=== PATIENT | female | born 1950 | race Caucasian/White ===

== ENCOUNTER 2020-09-16 10:44 | Outpatient (CLI) | payer MEDICARE, SELFPAY ==
--- NOTE | ~2020-09-16 | CT_ITS ---
EXAMINATION: CT abdomen pelvis wo/w con DATE: 09/16/2020 11:31 INDICATION: Left hydronephrosis TECHNIQUE: Computed tomography (CT) of the abdomen and pelvis was performed without and subsequently with 130 cc Omnipaque 350 intravenous contrast. Automated exposure control and iterative reconstructi on technique were employed. Exam dose: 446.97 mGy-cm total exam DLP. COMPARISON: None. FINDINGS: The lung bases are clear of infiltrate or consolidation. There is mild discoid atelectasis or scarring at the anterolateral aspect of the right lower lobe. Right lower lobe calcified pulmonary granuloma. Normal heart size. No pericardial or pleural effusion. The liver, gallbladder, bile ducts, spleen, pancreas and pancreatic duct are unremarkable, except for probable very small lateral segment left hepatic cyst. No pericholecystic fluid or stranding. No gal lbladder wall thickening. No pancreatic calcification. 4 mm right renal cortical cyst. No other renal mass lesion is evident. There is no urinary tract calc ulus evident. No right hydroureteronephrosis. There is moderately severe left hydronephrosis and prominent left pelviectasis, apparently due to the left ureteropelvic disproportion. There is no loss of renal parenchymal volume of either kidney, no renal scarring. Right ureteral jet. There is atherosclerotic calcification of the abdominal aorta and branches but no aneurysm of the abd ominal aorta. No intraperitoneal or retroperitoneal or pelvic mass lesion or adenopathy or ascites. No bladder wall thickening or intraluminal bladder mass lesion is noted. Uterus and adnexal areas are unremarkable. Normal appendix. There is diverticulosis of the sigmoid colon; no CT evidence of diverticulitis. No b owel obstruction, bowel wall thickening, pneumatosis or intraperitoneal free air is detected. Diffuse osteopenia. No suspicious osteolytic or osteoblastic lesions are noted. IMPRESSION: Moderately severe left hydronephrosis and prominent left pelviectasis, likely secondary to left ureteropelvic disproportion; consider retrograde pyelogram to exclude any ureteral mass lesio n Very small lateral segment left hepatic cyst and 4 mm right renal cortical cyst Diverticulosis of the left colon Reviewed, dictated and finalized at [facility]. Reviewed, dictated and finalized at location [facility]. H FRAMER IMPRESSION: Moderately severe left hydronephrosis and prominent left pelviecta sis, likely secondary to left ureteropelvic disproportion; consider retrograde pyelogram to exclude any ureteral mass lesion Very small lateral segment left hepatic cyst and 4 mm right renal cortical cyst Diverticulosis of the left colon
[2020-09-16 11:09] LABS: Estimated Glomerular Filt Rate > 60
== END 2020-09-16 10:45 | disposition home or self-care (01) ==
LOC: ANHIMG 10:48
PROVIDERS: PCP Nurse Practitioner Adult Health; Visit Provider Urology
DX: N13.30 Unspecified hydronephrosis (principal); K57.30 Diverticulosis of large intestine without perforation or abscess without bleeding; N28.1 Cyst of kidney, acquired
CPT/HCPCS: 74178; Q9967

== ENCOUNTER 2020-09-29 13:19 | Outpatient (CLI) | payer MEDICARE, SELFPAY ==
--- NOTE | ~2020-09-29 | NM_ITS ---
EXAMINATION: SONAM aguilar renal scan DATE: 09/29/2020 15:00 INDICATION: Left hydronephrosis TECHNIQUE: 8.2 mCi Tc-99m MAG3 was administered IV. 40 mg furosemide was administered IV immediately afterward. The patient was scanned in the supine position. A posterior abdominal radionuclide angiog slim was obtained. A subsequent time course of static images of the kidneys, ureters, and bladder was obtained. COMPARISON: None FINDINGS: The posterior abdominal radionuclide angiogram and sequential static images show normal size, positio n, and morphology of the kidneys. Peak renal parenchymal uptake was 7.5 min in left kidney and 1.9 mi n in right kidney (normal peak 3-5 minutes). The relative early renal uptake was 51% on the right an d 49% on the left (<40% is abnormal). There is a dilated left renal pelvis consistent with moderate h ydronephrosis is seen on prior CT. No abnormalities of the ureters or bladder are seen. T1/2 for clearance of activity from the left kidney and proximal collecting system was 18.0 minutes. T1/2 for clearance of activity from the right kidney and proximal collecting system was 8.6 minutes. Notes on interpretation: T1/2 <10 minutes is normal, 10-15 minutes is low grade obstruction of questi onable clinical significance, 15-20 minutes is partial obstruction that is likely clinically signific ant, >20 minutes is high grade obstruction. Note that false positives may be seen with supine positio lainey, dehydration, severely dilated nonobstructed kidney, atonic collecting system, poor renal functi on, and chronic furosemide use. IMPRESSION: 1. Delayed contrast clearance from the left kidney consistent with partial obstruction which could b e clinically significant however renal function remains symmetric. Reviewed, dictated and finalized at location A. B2B SALES EXECUTIVE IMPRESSION: 1. Delayed contrast clearance from the left kidney consistent with partial obs truction which could be clinically significant however renal function remains s ymmetric.
== END 2020-09-29 13:20 | disposition home or self-care (01) ==
PROVIDERS: PCP Nurse Practitioner Adult Health; Visit Provider Urology
DX: N13.30 Unspecified hydronephrosis (principal)
CPT/HCPCS: 78708; A9562; J1940

== ENCOUNTER 2020-11-08 12:28 | Outpatient (CLI) | payer MEDICARE, SELFPAY ==
--- NOTE | 2020-11-08 16:31 | WPDSIXMINUTE ---
Six Minute Walk This is a 6 minutes walk for exertional dyspnea. Findings: The patient's resting room air oxygen saturation measured by pulse oximetry was 92% and her heart rate was 80 bpm. Patient ambulated on room air for 213 meters and oxygen saturation remained 89 to 93%. Heart rate at the end of the study was 87 bpm. There are no prior studies for comparison.
== END 2020-11-08 12:29 | disposition home or self-care (01) ==
PROVIDERS: PCP Nurse Practitioner Adult Health; Visit Provider Nurse Practitioner
DX: J44.9 Chronic obstructive pulmonary disease, unspecified (principal)
CPT/HCPCS: 94618

== ENCOUNTER 2020-11-10 09:51 | Outpatient (CLI) | payer MEDICARE, SELFPAY ==
--- NOTE | 2020-11-10 09:53 | ECG_ITS ---
Measurements Intervals [place] Rate: 78 P: 81 IN: 217 QRS: 71 QRSD: 95 T: 68 QT: 401 QTc: 457 Interpretive Statements SINUS RHYTHM WITH FIRST DEGREE AV BLOCK FREQUENT VENTRICULAR PREMATURE COMPLEXES POSSIBLE LEFT ATRIAL ENLARGEMENT BORDERLINE R WAVE PROGRESSION, ANTERIOR LEADS BASELINE WANDER- V3-V6 ABNORMAL ECG Electronically Signed On 11-10-2020 12:04:57 CUSTOMER CARE VOICE CONSULTANT by Jorden Brandt D.O.
== END 2020-11-10 09:52 | disposition home or self-care (01) ==
LOC: ANHSURGERY 09:53
PROVIDERS: PCP Nurse Practitioner Adult Health; Visit Provider Urology
DX: Z01.818 Encounter for other preprocedural examination (principal); E78.00 Pure hypercholesterolemia, unspecified; N13.30 Unspecified hydronephrosis; R94.31 Abnormal electrocardiogram [ECG] [EKG]
CPT/HCPCS: 87086; 93005

== ENCOUNTER 2020-11-13 01:15 | Outpatient (CLI) | payer MEDICARE, SELFPAY ==
[2020-11-13 18:47] LABS: SARS-CoV-2 RNA PCR Negative
== END 2020-11-13 01:16 | disposition home or self-care (01) ==
LOC: ANHCOVIDDT 01:15
PROVIDERS: PCP Nurse Practitioner Adult Health; Visit Provider Urology
DX: Z01.812 Encounter for preprocedural laboratory examination (principal); Z20.822 Contact with and (suspected) exposure to COVID-19
CPT/HCPCS: C9803; U0003; U0005

== ENCOUNTER 2020-11-16 01:40 | Day surgery (SDC) | payer MEDICARE, SELFPAY ==
[2020-11-08 14:37] VITALS: BMI 20.7
--- NOTE | ~2020-11-16 | XR_ITS ---
EXAMINATION: XR retrograde pyelo w/stent LT EXAM DATE: 11/16/2020 09:04 INDICATION: Left-sided retrograde mammogram for hydronephrosis. TECHNIQUE: Fluoroscopy used during XR retrograde pyelo w/stent LT performed by Dr. Raheem rey MD. The DAP for this procedure was 168 radcm2. FINDINGS: Left ureter was cannulated and injected. There is moderate to severe left hydronephrosis, without evidence of hydroureter. There is diffusely narrow appearing proximal ureter, does raise poss ibility of congenital narrowing causing chronic low-grade flow impairment as underlying etiology for the hydronephrosis. No focal superimposed strictures identified. No filling defects. A left double-J ureteral stent was positioned. Correlate with procedure note. IMPRESSION: Moderate to severe left hydronephrosis with diffusely narrow proximal ureter, could be co ngenital finding and resultant chronic low-grade urine flow impairment. Reviewed, dictated and finalized at location A. O FINISH PHOTOGRAPHER IMPRESSION: Moderate to severe left hydronephrosis with diffusely narrow proxim al ureter, could be congenital finding and resultant chronic low-grade urine fl ow impairment.
[2020-11-16 06:51] VITALS: BP 150/63; PULSE 80; RESP 16; TEMP 36.4; O2SAT 96
[2020-11-16] MEDS: LACTATED RINGERS 1,000 ML 30 ML IV CONT (07:10)
--- NOTE | 2020-11-16 07:30 | WPDHPUPDATE1 ---
History and Physical Update Update Date/Time: 11/16/20 07:30 History and Physical has been reviewed, including an updated exam of the patient. There are NO changes in the patient's condition. Risks, benefits, and alternatives have been discussed and questions answered. Patient agrees to proceed with procedure.
--- NOTE | 2020-11-16 07:53 | WPDANESEPPF ---
Anes - Initial Pre Proc Eval Procedure: Operation Date: 11/16/20 08:30 Proposed Procedures p Cystoscopy, Possible Left Ureteroscopy, Left Retrograde Pyelogram - Raheem Fuentes MD Date/Time: 11/16/20 07:53 Surgeon: Raheem Fuentes MD Pre Op Diagnosis: Left Hydronephrosis Patient Data Age: 70 Gender: F Height: 5 ft Weight: 46.5 kg Last Vital Signs Temp 97.6 F 11/16/20 06:51 Pulse 80 11/16/20 06:51 Resp 16 11/16/20 06:51 BP 150/63 H 11/16/20 06:51 Pulse Ox 96 11/16/20 06:51 Allergies Allergy/AdvReac Type Severity Reaction Status Date / Time No Known Allergies Allergy Verified 11/16/20 06:58 Home Medications Medication Instructions Recorded Confirmed Type albuterol sulfate 2 puff INHALATION BID 11/08/20 11/16/20 History aspirin [Adult Low Dose Aspirin] 81 mg PO DAILY 11/08/20 11/16/20 History budesonide-formoterol [Symbicort] 2 puff BID 11/08/20 11/16/20 History carbamazepine 200 mg PO BID 11/08/20 11/16/20 History escitalopram oxalate 20 mg PO QAM 11/08/20 11/16/20 History ibandronate 150 mg PO MONTHLY 11/08/20 11/16/20 History omeprazole 40 mg PO DAILY 11/08/20 11/16/20 History simvastatin 20 mg PO DAILY 11/08/20 11/16/20 History temazepam 15 mg PO HS 11/08/20 11/16/20 History tiotropium bromide [Spiriva 1 puff INHALATION BID 11/08/20 11/16/20 History Respimat] Patient hx anesthesia problems: none Family hx anesthesia problems: none PMFSH Past Medical History Medical History (Updated 11/16/20 @ 07:52 by Charlie Garcia MD) COPD (chronic obstructive pulmonary disease) GERD (gastroesophageal reflux disease) Hyperlipidemia TIA (transient ischemic attack) Social History Social History Smoking packs per day: 0.5 Smoking cigarettes per day: 10.0 Years smoked: 40 Smoking pack-years: 20.00 Smoking status: Current every day smoker Tobacco type: cigarettes Living arrangements: alone Spiritual care concerns: No Anes - Eval Final PreProcedure Day of Procedure 11/16/20 07:53 Patient weight: normal Heart: regular rate and rhythm Lungs: clear to auscultation Airway: Mallampati scale class II Neurological: alert and oriented Last oral intake: >/= 8 hours ASA classification: III Emergent: no Anesthetic plan: proceed Anesthesia type and monitoring: general LMA and standard monitoring Informed Consent: The patient's anesthetic plan and its attendant risks and benefits were discussed with the patient/family/POA. Questions were solicited and answers provided to the satisfaction of the patient/family/POA.
[2020-11-16] MEDS: ceFAZolin 2 GM/D5W 50 ML 2 GM/50 ML BAG IVPB (08:26)
[2020-11-16] MEDS: LIDOCAINE HCL 2% GEL UROJET 10 ML PKG MUCOUS MEM (08:56)
--- NOTE | 2020-11-16 09:01 | P.OP_ITS ---
Procedure Note - Detailed Date of procedure: 11/16/20 Pre-op diagnosis: Left Hydronephrosis Post-op diagnosis: same (Left UPJ) Procedure performed: Cystoscopy, left retrograde pyelogram, left ureteroscopy, left ureteral stent placement 4.8 Citizen [place] contour Description of procedure: Patient is taken the operative suite and correctly identified. Once anesthesia was obtained she was placed in dorsal lithotomy position and prepped draped usual sterile fashion. Nineteen Citizen [place] scope inserted the bladder. There is no tumors noted. Left ureteral orifice was cannulated with a Wedron in a pyelogram was performed. There was no filling defects in the ureter she did have some narrowing at the UPJ which is consistent with UPJ obstruction. We placed a wire up to that area and placed a flexible ureteral scope in. We were able to get it all the way to the UPJ but not able to manipulate the angle to get into the renal pelvis. We thus just simply placed a wire in and placed a 4.8 [place] contour stent. 2% viscous lidocaine was inserted urethra. The plan is to simply remove the stent in a couple weeks and see how she does clinically. Based on prior renal scan she has not lost any function of that kidney. There was no evidence of tumors at this area. Anesthesia: GLMA Surgeon: Raheem Fuentes MD Drains: Yes Packing: No Pathology: none sent Complications: No immediate complications Condition: stable Disposition: PACU
[2020-11-16 09:05] VITALS: BP 137/79; PULSE 87; RESP 16; TEMP 36.1; O2SAT 100
[2020-11-16 09:20] VITALS: BP 159/79; PULSE 83; RESP 16; O2SAT 100
[2020-11-16 09:30] VITALS: BP 164/83; PULSE 84; RESP 16; O2SAT 95
[2020-11-16 09:35] VITALS: BP 155/77; PULSE 79; RESP 16
[2020-11-16 10:05] VITALS: BP 155/76; PULSE 86; RESP 16
== END 2020-11-16 10:19 | disposition home or self-care (01) ==
PROVIDERS: PCP Nurse Practitioner Adult Health; Visit Provider Urology
PROC: (CPT 52352; principal; 2020-11-16 08:30)
DX: N13.30 Unspecified hydronephrosis (principal); E78.5 Hyperlipidemia, unspecified; J44.9 Chronic obstructive pulmonary disease, unspecified; K21.9 Gastro-esophageal reflux disease without esophagitis; Z86.73 Personal history of transient ischemic attack (TIA), and cerebral infarction without residual deficits; Z79.82 Long term (current) use of aspirin; F17.210 Nicotine dependence, cigarettes, uncomplicated
CPT/HCPCS: 52332; 74420; 87086; 93005; A9270; C1758; C1769; C2617; C9803; J0690; J1100; J2405; J2704; J3010; J7120; Q9966; U0003; U0005

== ENCOUNTER 2020-11-23 13:16 | Outpatient (CLI) | payer MEDICARE, SELFPAY ==
--- NOTE | 2020-11-23 | ECHO_ITS ---
Patient Info Name: Janette Interiano Age: 70 years : 1950 Gender: Female Ht: 60 in Wt: 102 lbs BSA: 1.40 m2 HR: 66 bpm BP: 158 / 82 mmHg Heart Rhythm: Sinus Rhythm Technical Quality: Fair Exam Date: 11/23/2020 1:46 PM Exam Location: [facility] Patient Status: Outpatient Admit Date: 11/23/2020 Staff Ordering Physician: LedaKarie Clinical Microbiologist: Roseann Rosales RDCS Attending Provider: ZacariasKarie Exam Type: CA echo doppler color flow Study Info Indications R06.09 - Other forms of dyspnea Complete two-dimensional, color flow and Doppler transthoracic echocardiogram is performed. Summary 1. Complete two-dimensional, color flow and Doppler transthoracic echocardiogram is performed. 2. Left ventricular chamber dimension is normal. 3. Left ventricular systolic function is normal, estimated at 60-65%. 4. Left ventricular false tendon is incidentally noted. 5. No significant valvular abnormality reason for dyspnea. Left Ventricle Left ventricular chamber dimension is normal. Left ventricular systolic function is normal, estimated at 60-65%. The left ventricular diastolic function is grade I diastolic dysfunction. Left ventricular false tendon is incidentally noted. Right Ventricle Right ventricular chamber dimension is normal. Left Atria Left atrial chamber dimension is normal. Right Atria Right atrial chamber dimension is normal. Aortic Valve The aortic valve is trileaflet. There is no aortic valve stenosis. Pulmonic Valve The pulmonic valve is not well visualized. Mitral Valve The mitral valve has normal leaflets. There is no mitral valve regurgitation. Tricuspid Valve The tricuspid valve leaflets are normal. Pericardium/Pleural The pericardium appears normal. Aorta The aortic root size at the sinus of Valsalva is normal. Left Ventricular Outflow Tract Name Value Normal LVOT 2D LVOT Diameter 2.0 cm LVOT Doppler LVOT Peak Gradient 4 mmHg LVOT Mean Gradient 2 mmHg LVOT VTI 23 cm LVOT VTI/AV VTI Ratio 0.9 LVOT Stroke Volume 70 ml LVOT CO 4.5 l/min LVOT CI 3.2 l/min/m2 Pulmonic Valve Name Value Normal RVOT Doppler RVOT Peak Gradient 1 mmHg PV Doppler PV Peak Gradient 2 mmHg Mitral Valve Name Value Normal MV Doppler
== END 2020-11-23 13:17 | disposition home or self-care (01) ==
PROVIDERS: PCP Nurse Practitioner Adult Health; Visit Provider Nurse Practitioner
DX: J44.9 Chronic obstructive pulmonary disease, unspecified (principal); R06.09 Other forms of dyspnea
CPT/HCPCS: 93306

== ENCOUNTER 2021-09-12 07:57 | Outpatient (CLI) | payer MEDICARE, SELFPAY ==
--- NOTE | 2021-09-12 14:10 | WPDSIXMINUTE ---
Six Minute Walk Procedure Procedure Performed Pulmonary Stress Test (6 min walk) Six Minute Walk This is a 6 minute walk test. The test was performed and interpreted in accordance with the 2014 ERS/ATS task force guidelines. Findings: The patient's resting room air oxygen saturation measured by pulse oximetry was 95% and her heart rate was 75 bpm. Patient ambulated for 366 meters and oxygen saturation remained 90 to 95%. Heart rate at the end of the study was 97 bpm. The patient did not qualify for supplemental oxygen at rest or with ambulation. Compared to previous 6 minutes walk performed on 11/08/2020 the distance walked has increased from 213 m to 366 m.
== END 2021-09-12 07:58 | disposition home or self-care (01) ==
LOC: ANHPFT 08:04
PROVIDERS: PCP Nurse Practitioner Adult Health; Visit Provider Nurse Practitioner
DX: J44.9 Chronic obstructive pulmonary disease, unspecified (principal)
CPT/HCPCS: 94618

== ENCOUNTER 2021-10-12 01:25 | Day surgery (SDC) | payer MEDICARE, SELFPAY ==
[2021-10-06 10:01] VITALS: BMI 20.6
--- NOTE | 2021-10-11 09:10 | PM.HPGS ---
History of Present Illness History of Present Illness Consent: Risks, benefits, and alternatives have been discussed and questions answered. Patient agrees to proceed with procedure. Chief complaint: dysphagia Narrative: Janette Interiano is a 71 year old female Who has in the past had dysphagia requiring dilatation. When I saw her a few years ago no stricture was seen. I did obtain biopsies that were unremarkable with no Abbasi's mucosa Review of Systems Review of Systems: All systems reviewed & are unremarkable except as noted in HPI and below PMFSH Past Medical History Medical History COPD (chronic obstructive pulmonary disease) GERD (gastroesophageal reflux disease) Hyperlipidemia TIA (transient ischemic attack) Social History Social History Smoking packs per day: 0.5 Smoking cigarettes per day: 10.0 Years smoked: 40 Smoking pack-years: 20.00 Smoking status: Current every day smoker Tobacco type: cigarettes Alcohol intake: current Alcohol use details: few beers per month Substance use: never Substance use type: does not use Living arrangements: alone Spiritual care concerns: No Meds Home Medications and Allergies Home Medications Medication Instructions Recorded Confirmed Type Spiriva Respimat 1 puff INHALATION BID 11/08/20 10/12/21 History albuterol sulfate 2 puff INHALATION BID 11/08/20 10/12/21 History aspirin 81 mg PO DAILY 11/08/20 10/12/21 History budesonide-formoterol [Symbicort] 2 puff BID 11/08/20 10/12/21 History carbamazepine 200 mg PO BID 11/08/20 10/12/21 History escitalopram oxalate 20 mg PO QAM 11/08/20 10/12/21 History ibandronate 150 mg PO MONTHLY 11/08/20 10/12/21 History omeprazole 40 mg PO DAILY 11/08/20 10/12/21 History simvastatin 20 mg PO DAILY 11/08/20 10/12/21 History temazepam 15 mg PO HS 11/08/20 10/12/21 History Allergies Allergy/AdvReac Type Severity Reaction Status Date / Time No Known Allergies Allergy Verified 10/12/21 07:13 Exam Const: General: alert Orientation/consciousness: patient oriented x3 Resp: Auscultation: clear to auscultation bilaterally Cardio: Rhythm: regular rhythm GI: GI Palp: Yes Soft to palpation and No Tenderness to palpation present (GI) Neuro: General: patient oriented x3 Assessment and Plan Assessment and plan (1) Dysphagia: Code(s): R13.10 - Dysphagia, unspecified Status: Acute Assessment and Plan: EGD with possible biopsy or dilatation or cautery.
[2021-10-12 07:14] VITALS: BP 160/109; PULSE 93; RESP 16; TEMP 36.9; O2SAT 93
[2021-10-12] MEDS: LACTATED RINGERS 1,000 ML 150 ML IV CONT (07:16)
--- NOTE | 2021-10-12 07:40 | WPDANESEPPF ---
Anes - Initial Pre Proc Eval Procedure: Operation Date: 10/12/21 08:30 Proposed Procedures p Esophagogastroduodenoscopy - Pro Hilario MD Date/Time: 10/12/21 07:40 Surgeon: Pro Hilario MD Pre Op Diagnosis: dysphagia Patient Data Age: 71 Gender: F Height: 1.52 m Weight: 47.7 kg Last Vital Signs Temp 36.9 C 10/12/21 07:14 Pulse 93 10/12/21 07:14 Resp 16 10/12/21 07:14 BP 160/109 H 10/12/21 07:14 Pulse Ox 93 10/12/21 07:14 Allergies Allergy/AdvReac Type Severity Reaction Status Date / Time No Known Allergies Allergy Verified 10/12/21 07:13 Home Medications Medication Instructions Recorded Confirmed Type Spiriva Respimat 1 puff INHALATION BID 11/08/20 10/12/21 History albuterol sulfate 2 puff INHALATION BID 11/08/20 10/12/21 History aspirin 81 mg PO DAILY 11/08/20 10/12/21 History budesonide-formoterol [Symbicort] 2 puff BID 11/08/20 10/12/21 History carbamazepine 200 mg PO BID 11/08/20 10/12/21 History escitalopram oxalate 20 mg PO QAM 11/08/20 10/12/21 History ibandronate 150 mg PO MONTHLY 11/08/20 10/12/21 History omeprazole 40 mg PO DAILY 11/08/20 10/12/21 History simvastatin 20 mg PO DAILY 11/08/20 10/12/21 History temazepam 15 mg PO HS 11/08/20 10/12/21 History Patient hx anesthesia problems: none Family hx anesthesia problems: none Results Review: All pre-operative results and documents have been reviewed as part of the pre-operative evaluation. [facility] Past Medical History Medical History (Updated 10/12/21 @ 07:40 by Larry Dean MD) Chronic respiratory failure with hypoxia, on home oxygen therapy COPD (chronic obstructive pulmonary disease) GERD (gastroesophageal reflux disease) Hyperlipidemia TIA (transient ischemic attack) Social History Social History Smoking packs per day: 0.5 Smoking cigarettes per day: 10.0 Years smoked: 40 Smoking pack-years: 20.00 Smoking status: Current every day smoker Tobacco type: cigarettes Alcohol intake: current Alcohol use details: few beers per month Substance use: never Substance use type: does not use Living arrangements: alone Spiritual care concerns: No Anes - Eval Final PreProcedure Day of Procedure 10/12/21 07:40 Patient weight: thin Heart: regular rate and rhythm Lungs: clear to auscultation Airway: Mallampati scale class II and other (dentures) Neurological: alert and oriented Last oral intake: >/= 8 hours ASA classification: IV Emergent: no Anesthetic plan: proceed Anesthesia type and monitoring: general GIVS and standard monitoring Results Review: All pre-operative results and documents have been reviewed as part of the pre-operative evaluation. Informed Consent: The patient's anesthetic plan and its attendant risks and benefits were discussed with the patient/family/POA. Questions were solicited and answers provided to the satisfaction of the patient/family/POA.
[2021-10-12 08:39] VITALS: BP 119/67; PULSE 70; RESP 18; O2SAT 100
[2021-10-12 08:49] VITALS: BP 127/75; PULSE 74; RESP 20; O2SAT 100
[2021-10-12 08:59] VITALS: BP 148/79; PULSE 68; RESP 20; O2SAT 100
[2021-10-12] MEDS: BENZOCAINE (*SP) 60 ML SPRAY CAN (HURRICAINE) 1 SPRAY MUCOUS MEM (09:08)
== END 2021-10-12 09:16 | disposition home or self-care (01) ==
PROVIDERS: PCP Nurse Practitioner Adult Health; Visit Provider Internal Medicine Gastroenterology
PROC: 0DJ08ZZ Inspection of Upper Intestinal Tract, Via Natural or Artificial Opening Endoscopic (ICD-10-PCS; CPT 43235; principal; 2021-10-12 08:30)
DX: R13.10 Dysphagia, unspecified (principal); J44.9 Chronic obstructive pulmonary disease, unspecified; K21.9 Gastro-esophageal reflux disease without esophagitis; E78.5 Hyperlipidemia, unspecified; Z86.73 Personal history of transient ischemic attack (TIA), and cerebral infarction without residual deficits; F17.210 Nicotine dependence, cigarettes, uncomplicated
CPT/HCPCS: 43239; 88305; J2704; J7120

== ENCOUNTER 2021-11-02 07:45 | Outpatient (CLI) | payer MEDICARE, SELFPAY ==
--- NOTE | ~2021-11-02 | XR_ITS ---
XR barium swallow DATE: 11/02/2021 08:36 INDICATION: Dysphagia. Gastroesophageal reflux. TECHNIQUE: Fluoroscopy, rapid sequence spot radiograph and overhead radiographs during oral ingestion of barium DAP: 2.3 0.7 minutes fluoroscopy time. 64 images. COMPARISON: None FINDINGS: There is normal deglutition and esophageal peristalsis. No stricture, mucosal fold thickeni ng, erosion, ulceration, intraluminal mass lesion or diverticulum of the esophagus is detected. IMPRESSION: Normal examination Reviewed, dictated and finalized at [facility]. Reviewed, dictated and finalized at location A. TALIZER OPERATOR IMPRESSION: Normal examination
== END 2021-11-02 07:46 | disposition home or self-care (01) ==
PROVIDERS: PCP Nurse Practitioner Adult Health; Visit Provider Internal Medicine Gastroenterology
DX: R13.10 Dysphagia, unspecified (principal)
CPT/HCPCS: 74220

== ENCOUNTER 2021-12-04 06:07 | Observation (INO) | payer MEDICARE, SELFPAY ==
[2021-12-04] VITALS (22 sets, daily range): BP systolic 132–176; BP diastolic 72–86; PULSE 67–82; RESP 16–25; TEMP 36.1–37; O2SAT 90–98; BMI 20.3
--- NOTE | ~2021-12-04 | XR_ITS ---
EXAMINATION: XR chest 2V 12/04/2021 08:25 INDICATION: COPD. Dyspnea. PROCEDURE: 2 view chest COMPARISON: Comparison to multiple prior studies sequentially, with oldest reviewed study dated 01/11. FINDINGS: There is a new irregular density in the left upper lobe which may represent scarring or seq uela of previous infection/inflammatory process, although malignancy is not excluded. The lungs are h yperinflated which is consistent with, but not diagnostic of chronic obstructive pulmonary disease. T he cardiomediastinal silhouette is within normal limits. There are no pleural effusions. There is n o pneumothorax suspected. IMPRESSION: 1: New irregular density left upper lobe which may represent sequela of previous infectious/inflamma tory process versus malignancy. This was identified on CTA dated 12/04/2021. Consider correlation wit h pet/CT scan or percutaneous biopsy. Reviewed, dictated and finalized at location A. WORKER BULBS IMPRESSION: 1: New irregular density left upper lobe which may represent sequela of previo us infectious/inflammatory process versus malignancy. This was identified on CT A dated 12/04/2021. Consider correlation with pet/CT scan or percutaneous biops y.
--- NOTE | ~2021-12-04 | MR_ITS ---
EXAMINATION: MR brain/brain stem wo/w con EXAM DATE: 12/04/2021 12:34 INDICATION: right sided weakness and numbness . TECHNIQUE: Magnetic resonance imaging (MRI) of the brain/brain stem obtained without contrast. Sagit christiana T1, axial diffusion, gradient echo (T2*), T1, T2, FLAIR sequences obtained. Patient was then inj ected with 9 cc intravenous Multihance contrast. Axial and coronal postcontrast T1 weighted sequences obtained. There is no prior study for comparison. FINDINGS: There is punctate acute infarction the left thalamus. Punctate old left basal ganglia lacun ar infarction. Mild microangiopathy. There is no acute hemorrhage seen on the T2*, a hemosiderin sens itive sequence. No intraparenchymal brain mass. The ventricles are normal in size. There are no ext ra-axial collections. Flow voids are seen in the cerebral arteries on the T2-weighted sequences cons istent with their expected patency. Patient has had bilateral ocular lens surgery. Soft tissue is u nremarkable. There are no areas of abnormal enhancement on the postcontrast images. IMPRESSION: 1. Acute punctate left thalamic lacunar infarction. Reviewed, dictated and finalized at location G. LY PERSON
--- NOTE | ~2021-12-04 | CT_ITS ---
EXAMINATION: CT BRAIN W/O DATE: 12/04/2021 06:38 INDICATION: Right-sided weakness TECHNIQUE: Computed tomography (CT) of the head was performed without intravenous contrast. The dose- length product was 605.33 mGy-cm. Automated exposure control and iterative reconstruction technique w ere employed. COMPARISON: No prior studies for comparison. FINDINGS: Normal brain parenchymal volume for age. Normal medel-white differentiation. There are chron ic left lacunar infarctions. No acute intracranial hemorrhage, infarction, mass or mass effect. No ventriculomegaly or midline shift. Midline sagittal images demonstrate a normal corpus callosum, c raniovertebral junction and sella turcica. Basilar cisterns are patent. Paranasal sinuses and mastoids are pneumatized. No depressed skull fractures. IMPRESSION: 1. No acute intracranial abnormality. 2: Chronic left lacunar infarctions. Reviewed, dictated and finalized at location A. TS BOOK SERVER
--- NOTE | ~2021-12-04 | CT_ITS ---
EXAMINATION: CTA brain carotid DATE: 12/04/2021 07:33 CIGARETTE MAKING MACHINE CATCHER INDICATION: Right-sided weakness. TECHNIQUE: Computed tomographic angiography (CTA) of the head was performed with 100 mL Omnipaque-350 intravenous contrast. CTA of the neck was performed with intravenous contrast. The dose-length produ ct was 927.05 mGy-cm. Maximum intensity projection and volume rendered 3D-reconstructions were create d by the technologist on a separate workstation. COMPARISON: CT brain dated 12/04/2021. FINDINGS: HEAD CTA: There is normal contrast opacification of the intracranial arteries without evidence for si gnificant stenosis, occlusion or aneurysm. NECK CTA: There is minimal atherosclerosis of the right carotid bulb. No evidence for significant kiet nosis, occlusion, dissection or aneurysm. Thyroid gland is unremarkable. Vertebral arteries within no rmal limits. No evidence for basilar artery aneurysm. Emphysematous changes noted in the lung apices. There is a spiculated 1.9 cm mass in the left upper lobe. There is adjacent pleural thickening. Ther e is debris in the trachea, likely mucus. There is less than 10%% stenosis of the proximal right internal carotid artery relative to normal dis christiana artery lumen diameter (NASCET criteria). There is 0% stenosis of the proximal left internal carot id artery relative to normal distal artery lumen diameter. IMPRESSION: 1.: No significant vascular abnormality of the neck or intracranial arteries. 2: Irregular shaped 1.9 cm mass in the left upper lobe with adjacent pleural thickening. Differential diagnosis includes sequela of previous infectious/inflammatory process and bronchogenic carcinoma. 3: Emphysema. Reviewed, dictated and finalized at location A. RETTE MAKING MACHINE CATCHER IMPRESSION: 1.: No significant vascular abnormality of the neck or intracranial arteries. 2: Irregular shaped 1.9 cm mass in the left upper lobe with adjacent pleural th ickening. Differential diagnosis includes sequela of previous infectious/inflam matory process and bronchogenic carcinoma. 3: Emphysema.
--- NOTE | 2021-12-04 06:17 | ECG_ITS ---
Measurements Intervals [place] Rate: 67 P: 74 TN: 230 QRS: 84 QRSD: 89 T: 85 QT: 412 QTc: 437 Interpretive Statements SINUS RHYTHM WITH FIRST DEGREE AV BLOCK BASELINE ARTIFACT- I, II, III, AVR, AVL, AVF, V1-V6 ABNORMAL ECG Electronically Signed On 12-04-2021 7:39:53 MANAGER STAR by Jorden Brandt D.O.
[2021-12-04 06:25] LABS: Glucose Point of Care 98 mg/dl (65-105)
[2021-12-04 06:32] LABS: Basophils Absolute Auto 0.1 K/mm3 (0.0-0.1); Basophils Percent Auto 1.7 % (0.2-1.2); Eosinophils Absolute Auto 0.6 K/mm3 (0-0.3); Hematocrit 42.9 % (37.0-47.0); Hemoglobin 14.5 g/dL (12.0-15.0); Immature Granulocyte Absolute 0.02 K/mm3 (0.00-0.031); Immature Granulocyte Percent A 0.3 % (0-0.5); Lymphocytes Absolute Auto 2.71 K/mm3 (0.9-3.2); Lymphocytes Percent Auto 34.8 % (18.3-44.2); Mean Corpuscular HGB Conc 33.8 g/dl (32-36); Mean Corpuscular Hemoglobin 32.2 pg (26-34); Mean Corpuscular Volume 95.3 fl (80-100); Mean Platelet Volume 10.4 fl (7.4-10.4); Monocytes Absolute Auto 1.1 K/mm3 (0.1-0.6); Monocytes Percent Auto 13.5 % (2.6-8.5); Neutrophils Absolute Auto 3.3 K/mm3 (1.3-6.7); Neutrophils Percent Auto 41.7 % (45.5-73.1); Platelet Count Result 296 k/mm3 (150-375); Red Cell Distribution Width 13.4 % (11.5-14.5); White Blood Count 7.8 K/mm3 (4.5-10.0)
[2021-12-04 06:45] LABS: INR 0.9; Prothrombin Time 12.4 Seconds (11.1-14.7)
[2021-12-04 06:46] LABS: Partial Thromboplastin Time 27.7 SECONDS (22.3-36.8)
[2021-12-04 06:59] LABS: Add Urine Microscopic? NO; Appearance Urine Clear (Clear); Bilirubin Urine Negative (Negative); Blood Urine Negative (Negative); Color Urine Yellow (Yellow); Glucose Urine UA Negative (Negative); Ketones Urine Negative (Negative); Leukocyte Esterase Ur Negative LEU/UL (Negative); Nitrate Urine Negative (Negative); Protein Urine Negative (Negative); Urobilinogen Urine Negative mg/dL (<2.0)
[2021-12-04 07:02] LABS: Alanine Aminotransferase 20 U/L (4-35); Albumin Level 4.2 g/dL (3.5-5.1); Alkaline Phosphatase 99 U/L (38-126); Anion Gap 3 mmol/L (8-16); Aspartate Amino Transferase 26 U/L (14-36); Bilirubin,Total 0.4 mg/dL (0.2-1.3); Blood Urea Nitrogen 7 mg/dL (7-17); Calcium 9.3 mg/dL (8.4-10.2); Carbon Dioxide 32 mmol/L (22-30); Chloride 105 mmol/L (98-107); Estimated Glomerular Filt Rate > 60; Glucose 95 mg/dL (65-110); Sodium 140 mmol/L (137-145)
--- NOTE | 2021-12-04 07:57 | ED.GENADULT ---
HPI - General Adult General Chief complaint: Weakness Stated complaint: right sided heaviness Time Seen by Provider: 12/04/21 07:03 Source: patient and RN notes reviewed History of Present Illness HPI narrative: Patient is a 71 y/o female complaining of mild right sided weakness, numbness and tingling when she woke up around 5:10AM this morning. She is able to walk. She states that she felt fine when she went to sleep around 9:00 PM last night. Related Data Home Medications Medication Instructions Recorded Confirmed Spiriva Respimat 1 puff INHALATION BID 11/08/20 10/12/21 albuterol sulfate 2 puff INHALATION BID 11/08/20 10/12/21 aspirin 81 mg PO DAILY 11/08/20 10/12/21 budesonide-formoterol [Symbicort] 2 puff BID 11/08/20 10/12/21 carbamazepine 200 mg PO BID 11/08/20 10/12/21 escitalopram oxalate 20 mg PO QAM 11/08/20 10/12/21 ibandronate 150 mg PO MONTHLY 11/08/20 10/12/21 omeprazole 40 mg PO DAILY 11/08/20 10/12/21 simvastatin 20 mg PO DAILY 11/08/20 10/12/21 temazepam 15 mg PO HS 11/08/20 10/12/21 Allergies Allergy/AdvReac Type Severity Reaction Status Date / Time No Known Allergies Allergy Verified 12/04/21 09:02 Review of Systems Constitutional: Constitutional: Denies chills, Denies fever(s), Denies headache(s) and Denies weakness Eyes: Eyes: Denies blurry vision ENT: Denies headache(s) and Denies neck pain Cardiovascular: Cardiovascular: Denies chest pain and Denies dyspnea Respiratory: Respiratory: Denies cough and Denies dyspnea Gastrointestinal: Gastrointestinal: Denies abdominal pain, Denies diarrhea, Denies nausea and Denies vomiting Genitourinary: Genitourinary: Denies hematuria and Denies dysuria Musculoskeletal: Musculoskeletal: Denies back pain and Denies neck pain Neurologic: Denies headache(s), Reports numbness, Reports tingling, Reports paresthesias and Reports weakness PMFSH Past Medical History Medical History Chronic respiratory failure with hypoxia, on home oxygen therapy COPD (chronic obstructive pulmonary disease) GERD (gastroesophageal reflux disease) Hyperlipidemia TIA (transient ischemic attack) Social History Social History Smoking packs per day: 0.5 Smoking cigarettes per day: 10.0 Years smoked: 40 Smoking pack-years: 20.00 Smoking status: Current every day smoker Tobacco type: cigarettes Alcohol intake: current Alcohol use details: few beers per month Substance use: never Substance use type: does not use Spiritual care concerns: No Exam Const: General: no acute distress and well developed Orientation/consciousness: oriented to person, oriented to place, oriented to time and patient oriented x3 HENMT: Head: normocephalic Ears: external ears normal General nose exam: Normal external nose present Eyes: General: appearance normal, both eyes and all related structures Conjunctivae: conjunctivae normal Neck: Neck: normal visual inspection and full ROM Chest: Chest palpation & inspection: normal inspection of the chest and no tenderness Resp: Effort & Inspection: normal respiratory effort Auscultation: clear to auscultation bilaterally Cardio: Rate: regular rate Rhythm: regular rhythm GI: GI Palp: No abdominal tenderness and Yes Soft to palpation Skin: General skin exam: normal color and turgor normal Neuro: General: oriented to person, oriented to place, oriented to time and patient oriented x3 Cognition (Neuro): normal cognition Extrem: General: normal to inspection, full ROM and no pedal edema Psych: Appearance: grossly normal Mental Status: mental status grossly normal Affect: normal affect Course Consultations Consultation #1: Discussed with Dr. Jones, who agrees to admit. Date: 12/04/21 Time: 08:29 Vital Signs Vital signs: Vital Signs Pulse Rate 67 12/04/21 06:09 Respiratory Rate 18 12/04/21 06:09 Blood Pr
--- NOTE | 2021-12-04 08:22 | PC.NURSE ---
pt to Xray at this time.
--- NOTE | 2021-12-04 09:41 | ADMGEN ---
This patient, Janette Interiano, was admitted to Medical Room 249-01. Patient/family oriented to hospital policies and general routines including ID bracelet, bed and alarms, visiting hours, pain management, procedures, bathroom and other care routines, personal items, smoking policy, room service/diet, and visiting hours. Information on how to activate the Rapid Response Team has been discussed. Patient/Family are encouraged to report perceived risks to care and to ask questions if they do not understand what they are told or what they should do.
[2021-12-04] MEDS: ALBUTEROL SULFATE NEB 2.5 MG/3 ML INH 1.25 MG INHALATION ×2 (11:57→20:10)
--- NOTE | 2021-12-04 12:10 | PM.IMHP ---
H&P: HPI History of Present Illness Date/Time: 12/04/21 12:10 Chief Complaint: Right-sided weakness Narrative: 71 years old female admitted from home to the emergency room with a complaint that patient went to bed at 9:00 p.m. last night. Rabia she went to sleep she was fine but she woke this morning at 5:30 a.m. in the morning with complaint of having right-sided tingling and numbness in both upper and lower extremity. She also experienced a brief episode of weakness of the right side of the body. No loss of consciousness. No loss of bowel or bladder control. No swallowing problem. At present time patient is feeling better. However she still have tingling and numbness in the right upper and lower extremity. She is able to walk. She denies any shortness of breath or chest pain. Review of Systems Review of Systems: All systems reviewed & are unremarkable except as noted in HPI and below (the history and physical examination.) [facility] [place] Past Medical History Medical History (Updated 12/04/21 @ 12:13 by Clifford Jones MD) Chronic respiratory failure with hypoxia, on home oxygen therapy COPD (chronic obstructive pulmonary disease) GERD (gastroesophageal reflux disease) Hyperlipidemia TIA (transient ischemic attack) Social History Social History Smoking packs per day: 0.5 Smoking cigarettes per day: 10.0 Years smoked: 40 Smoking pack-years: 20.00 Smoking status: Current every day smoker Tobacco type: cigarettes Alcohol intake: never Alcohol use details: few beers per month Substance use: never Substance use type: does not use Gender identity (if verbalized by the patient): Female Sexual Orientation (if Verbalized by the Patient): Straight or Heterosexual Spiritual care concerns: No Meds Home Medications and Allergies Home Medications Medication Instructions Recorded Confirmed Type Spiriva Respimat 1 puff INHALATION BID 11/08/20 12/04/21 History albuterol sulfate 2 puff INHALATION QID PRN 11/08/20 12/04/21 History aspirin 81 mg PO DAILY 11/08/20 12/04/21 History budesonide-formoterol [Symbicort] 2 puff BID 11/08/20 12/04/21 History carbamazepine 200 mg PO BID 11/08/20 12/04/21 History escitalopram oxalate 20 mg PO QAM 11/08/20 12/04/21 History ibandronate 150 mg PO MONTHLY 11/08/20 12/04/21 History omeprazole 40 mg PO DAILY 11/08/20 12/04/21 History simvastatin 20 mg PO DAILY 11/08/20 12/04/21 History temazepam 15 mg PO HS 11/08/20 12/04/21 History albuterol sulfate 1.25 mg CONTINUOUS NEBULIZATION BID 12/04/21 12/04/21 History Allergies Allergy/AdvReac Type Severity Reaction Status Date / Time No Known Allergies Allergy Verified 12/04/21 09:02 Vital Signs Vital Signs - 24 hr 12/04/21 06:09 12/04/21 06:15 12/04/21 06:51 Temperature 37.0 C Pulse Rate 67 69 68 Respiratory Rate 18 16 Blood Pressure 150/73 H 162/80 H Pulse Oximetry 93 94 12/04/21 07:31 12/04/21 07:32 12/04/21 07:45 Temperature Pulse Rate 77 78 68 Respiratory Rate 18 20 19 Blood Pressure 169/86 H 169/86 H Pulse Oximetry 94 93 94 12/04/21 08:00 12/04/21 08:01 12/04/21 08:20 Temperature Pulse Rate 67 68 Respiratory Rate 20 21 H Blood Pressure 170/78 H Pulse Oximetry 93 92 91 12/04/21 08:29 12/04/21 08:30 12/04/21 08:31 Temperature Pulse Rate 71 69 74 Respiratory Rate 21 H 25 H 22 H Blood Pressure 155/83 H 150/78 H Pulse Oximetry 96 96 95 12/04/21 08:41 12/04/21 09:30 Temperature Pulse Rate 72 74 Respiratory Rate 19 16 Blood Pressure 155/83 H 158/74 H Pulse Oximetry 96 95 Exam Narrative: Constitutional: Constitutional: Denies chills, Denies fever(s), Denies headache(s) and Denies weakness Eyes: Eyes: Denies blurry vision ENT: Denies headache(s) and Denies neck pain Cardiovascular: Cardiovascular: Denies chest pain and Denies dyspnea Respiratory: Respiratory: Denies cough and Denies dyspnea Gastroin
[2021-12-04] MEDS: ASPIRIN 81 MG ENTERIC TABLET PO (13:02)
[2021-12-04] MEDS: ESCITALOPRAM OXALATE 10 MG TABLET 20 MG PO (13:42)
[2021-12-04] MEDS: PANTOPRAZOLE 40 MG TABLET PO (13:42)
--- NOTE | 2021-12-04 15:17 | PC.NURSE ---
Put a call out to Dr. Bawja regarding mri results.
[2021-12-04] MEDS: CLOPIDOGREL BISULFATE 75 MG TABLET PO (16:40)
[2021-12-04] MEDS: CARBAMAZEPINE XR 100 MG TAB.SR.12H 200 MG PO (17:22)
[2021-12-04] MEDS: FLUTICASONE/SALMETEROL 115-21 MCG INHALER 1 PUFF 2 PUFF INHALATION (20:10)
[2021-12-04] MEDS: TEMAZEPAM (*CRX) 15 MG CAPSULE PO (20:38)
[2021-12-04] MEDS: HEPARIN SODIUM 5,000 UNITS/ML VIAL 5000 UNITS SUB-Q (20:38)
[2021-12-05] VITALS (14 sets, daily range): BP systolic 134–152; BP diastolic 60–80; PULSE 74–85; RESP 16–20; TEMP 36.6–37; O2SAT 92–94
--- NOTE | 2021-12-05 06:00 | ECG_ITS ---
Measurements Intervals Hawks Rate: 77 P: 87 AR: 218 QRS: 78 QRSD: 88 T: 80 QT: 406 QTc: 460 Interpretive Statements SINUS RHYTHM WITH FIRST DEGREE AV BLOCK MINIMAL Q WAVES- INFERIOR LEADS ABNORMAL ECG Electronically Signed On 12-05-2021 13:00:49 PUBLISHING AGENT by Jorden Brandt D.O.
--- NOTE | 2021-12-05 06:00 | ECHO_ITS ---
Patient Info Name: Janette Interiano Age: 71 years : 1950 Gender: Female Ht: 60 in Wt: 104 lbs BSA: 1.41 m2 HR: 75 bpm BP: 151 / 74 mmHg Heart Rhythm: Sinus Rhythm Exam Date: 12/05/2021 11:38 AM Exam Location: [facility] Patient Status: Outpatient Admit Date: 12/04/2021 Staff Ordering Physician: Elisa Navarro MD Administrative Library Assistant: Sanford Dyson RDCS, RT Attending Provider: Clifford Jones MD Referring Physician: Ramon CROSS; Exam Type: CA echo doppler color flow Study Info Indications G45.8 - Other transient cerebral ischemic attacks and related syndromes Complete two-dimensional, color flow and Doppler transthoracic echocardiogram is performed. Strain analysis performed. Summary 1. Complete two-dimensional, color flow and Doppler transthoracic echocardiogram is performed. 2. Normal left and right ventricular systolic function. 3. No significant valvular abnormality. 4. Normal sinus rhythm. 5. No likely cardioembolic source identified. Left Ventricular Outflow Tract Name Value Normal LVOT 2D LVOT Diameter 2.0 cm LVOT Doppler LVOT Peak Gradient 3 mmHg LVOT Mean Gradient 2 mmHg LVOT VTI 18 cm LVOT VTI/AV VTI Ratio 0.7 LVOT Stroke Volume 57 ml LVOT CO 5.0 l/min LVOT CI 3.5 l/min/m2 Mitral Valve Name Value Normal MV Doppler MV Decel [place] 225 cm/s2 MV PHT 83 ms MV Area (PHT) 2.7 cm2 4.0-5.0 MV Diastolic Function MV E Peak Velocity 64 cm/s MV A Peak Velocity 101 cm/s MV E/A 0.6 MV Decel Time 286 ms MV Annular TDI MV E/e' (Septal) 10.9 <=8.0 MV E/e' (Lateral) 7.2 <=8.0 MV E/e' (Average) 9.1 Tricuspid Valve Name Value Normal TV Diastolic Function RV MPI 0.22 <=0.43 Aortic Valve Name Value Normal AV Doppler
[2021-12-05 06:01] LABS: Troponin I < 0.012 ng/mL (0.000-0.034)
[2021-12-05] MEDS: FLUTICASONE/SALMETEROL 115-21 MCG INHALER 1 PUFF 2 PUFF INHALATION ×2 (07:52→20:43)
[2021-12-05] MEDS: UMECLIDINIUM BROMIDE 62.5 MCG ELLIPTA 1 PUFF INHALATION (07:52)
[2021-12-05] MEDS: ALBUTEROL SULFATE NEB 2.5 MG/3 ML INH 1.25 MG INHALATION ×2 (07:52→20:43)
[2021-12-05] MEDS: ESCITALOPRAM OXALATE 10 MG TABLET 20 MG PO (07:58)
[2021-12-05] MEDS: ASPIRIN 81 MG ENTERIC TABLET PO (07:59)
[2021-12-05] MEDS: CLOPIDOGREL BISULFATE 75 MG TABLET PO (07:59)
[2021-12-05] MEDS: SIMVASTATIN 20 MG TABLET PO (07:59)
[2021-12-05] MEDS: PANTOPRAZOLE 40 MG TABLET PO (07:59)
[2021-12-05] MEDS: CARBAMAZEPINE XR 100 MG TAB.SR.12H 200 MG PO ×2 (07:59→16:49)
[2021-12-05] MEDS: HEPARIN SODIUM 5,000 UNITS/ML VIAL 5000 UNITS SUB-Q ×2 (07:59→20:05)
--- NOTE | 2021-12-05 10:54 | PM.IMPN ---
Progress Note: A&P Assessment and Plan (1) TIA (transient ischemic attack): Code(s): G45.9 - Transient cerebral ischemic attack, unspecified Status: Inactive Assessment and Plan: Head CTA--> No significant vascular abnormality of the neck or intracranial arteries. MRI-->Acute punctate left thalamic lacunar infarction Carotid Dopplers pending ECHO pending Neuro checks and monitor patient closely Continue ASA, Plavix, Statin Consult to neurology PT/OT (2) Hyperlipidemia: Code(s): E78.5 - Hyperlipidemia, unspecified Status: Inactive Assessment and Plan: Stable on current medication. (3) GERD (gastroesophageal reflux disease): Code(s): K21.9 - Gastro-esophageal reflux disease without esophagitis Status: Inactive Assessment and Plan: Continue statin Check lipid panel (4) COPD (chronic obstructive pulmonary disease): Code(s): J44.9 - Chronic obstructive pulmonary disease, unspecified Status: Inactive Assessment and Plan: Restart home medication. (5) Left upper lobe pulmonary nodule: Code(s): R91.1 - Solitary pulmonary nodule Status: Acute Assessment and Plan: Head CTA-->Irregular shaped 1.9 cm mass in the left upper lobe with adjacent pleural thickening. Differential diagnosis includes sequela of previous infectious/inflammatory process and bronchogenic carcinoma; Emphysema Incidental finding will workup as an outpatient (6) Acute CVA (cerebrovascular accident): Code(s): I63.9 - Cerebral infarction, unspecified Status: Acute Assessment and Plan: Treatment as above Additional Plan Code statu: FULL DVT Ppx: SCDs Subjective Date/time seen: 12/05/21 10:54 Interval history: Pt seen and evaluated; labs, vs, diagnostic results reviewed; pt continues with right sided numbness Review of Systems Review of Systems: All systems reviewed & are unremarkable except as noted in HPI and below Exam Narrative: Constitutional: Constitutional: Denies chills, Denies fever(s), Denies headache(s) and Denies weakness Eyes: Eyes: Denies blurry vision ENT: Denies headache(s) and Denies neck pain Cardiovascular: Cardiovascular: Denies chest pain and Denies dyspnea Respiratory: Respiratory: Denies cough and Denies dyspnea Gastrointestinal: Gastrointestinal: Denies abdominal pain, Denies diarrhea, Denies nausea and Denies vomiting Genitourinary: Genitourinary: Denies hematuria and Denies dysuria Musculoskeletal: Musculoskeletal: Denies back pain and Denies neck pain Neurologic: Denies headache(s), Reports numbness, Reports tingling, Reports paresthesias and Reports weakness Objective Data Vital Signs Vital Signs: Vital Signs - 24 hr 12/04/21 15:00 12/04/21 16:00 12/04/21 18:21 Temperature 36.2 C L Pulse Rate 67 68 Respiratory Rate 18 Blood Pressure 167/72 H Pulse Oximetry 94 94 12/04/21 20:00 12/04/21 20:10 12/04/21 20:17 Temperature Pulse Rate 82 76 74 Respiratory Rate 18 18 Blood Pressure Pulse Oximetry 90 12/04/21 21:41 12/05/21 00:00 12/05/21 04:00 Temperature 36.4 C L Pulse Rate 77 76 78 Respiratory Rate 18 Blood Pressure 132/77 Pulse Oximetry 98 12/05/21 06:00 12/05/21 07:53 12/05/21 07:56 Temperature 37.0 C Pulse Rate 77 81 Respiratory Rate 16 18 Blood Pressure 151/74 H Pulse Oximetry 94 92 12/05/21 08:02 Temperature Pulse Rate 76 Respiratory Rate 18 Blood Pressure Pulse Oximetry Intake/Output Intake/Output: Intake & Output 12/02/21 12/03/21 12/04/21 12/05/21 23:59 23:59 23:59 23:59 Intake Total 0 250 Output Total 0 Balance 0 250 Meds/Results Medications: Active Medications Generic Name Dose Route Start Last Admin Trade Name Freq PRN Reason Stop Dose Admin Albuterol 1.25 mg 12/04/21 20:00 12/05/21 07:52 Albuterol Sulfate Neb 2.5 Mg/3 Ml Inh INHALATION 1.25 mg Q12HRT INOCENCIO Administration A
--- NOTE | 2021-12-05 12:00 | WPDNEURCNPN ---
Assessment and Plan Additional Plan subcortical left thalamic lacunar stroke with right-sided symptomatology and negative CTA for any territorial involvement will benefit from the continuation of the aspirin echocardiogram is pending Consult date: 12/05/21 HPI: Janette Interiano is a 71 year old femaleAdmitted to the hospital for the complaints of right-sided weakness reportedly she went to bed at 9:00 p.m. last night when she woke up in the morning at around 5:30 a.m. she noted numbness on the right side of her body and also in both upper and lower extremities in addition to brief episode of weakness of the right side, she did not lose control the bowel or bladder, had no difficulties in swallowing and by the time she was evaluated by the physician she was feeling better, ongoing history of chronic respiratory failure with hypoxia on home oxygen therapy, COPD, GERD, TIA in the past, and also she does have a history of 20 he smoking pack years with smoked 40 and is currently everyday smoker though she does not drink alcohol, her outpatient medications include aspirin, and carbamazepine 200 mg twice a day evaluation up until now includes routine CBC normal normal chemistry and acute punctate left thalamic lacunar stroke on MRI of the brain with negative CTA of the brain and the neck except the incidental finding of irregular shaped 1.9cm mass in the left upper lobe with adjacent pleural thickening raising the possibility of previous inflammatory process or bronchogenic carcinoma Review of Systems Review of Systems: All systems reviewed & are unremarkable except as noted in HPI and below PMFSH Past Medical History Medical History Chronic respiratory failure with hypoxia, on home oxygen therapy COPD (chronic obstructive pulmonary disease) GERD (gastroesophageal reflux disease) Hyperlipidemia TIA (transient ischemic attack) Social History Social History Smoking packs per day: 0.5 Smoking cigarettes per day: 10.0 Years smoked: 40 Smoking pack-years: 20.00 Smoking status: Current every day smoker Tobacco type: cigarettes Alcohol intake: never Alcohol use details: few beers per month Substance use: never Substance use type: does not use Gender identity (if verbalized by the patient): Female Sexual Orientation (if Verbalized by the Patient): Straight or Heterosexual Spiritual care concerns: No Meds Home Medications and Allergies Home Medications Medication Instructions Recorded Confirmed Type Spiriva Respimat 1 puff INHALATION BID 11/08/20 12/04/21 History albuterol sulfate 2 puff INHALATION QID PRN 11/08/20 12/04/21 History aspirin 81 mg PO DAILY 11/08/20 12/04/21 History budesonide-formoterol [Symbicort] 2 puff BID 11/08/20 12/04/21 History carbamazepine 200 mg PO BID 11/08/20 12/04/21 History escitalopram oxalate 20 mg PO QAM 11/08/20 12/04/21 History ibandronate 150 mg PO MONTHLY 11/08/20 12/04/21 History omeprazole 40 mg PO DAILY 11/08/20 12/04/21 History simvastatin 20 mg PO DAILY 11/08/20 12/04/21 History temazepam 15 mg PO HS 11/08/20 12/04/21 History albuterol sulfate 1.25 mg CONTINUOUS NEBULIZATION BID 12/04/21 12/04/21 History Allergies Allergy/AdvReac Type Severity Reaction Status Date / Time No Known Allergies Allergy Verified 12/04/21 09:02 Vital Signs Vital Signs - 24 hr 12/04/21 15:00 12/04/21 16:00 12/04/21 18:21 Temperature 36.2 C L Pulse Rate 67 68 Respiratory Rate 18 Blood Pressure 167/72 H Pulse Oximetry 94 94 12/04/21 20:00 12/04/21 20:10 12/04/21 20:17 Temperature Pulse Rate 82 76 74 Respiratory Rate 18 18 Blood Pressure Pulse Oximetry 90 12/04/21 21:41 12/05/21 00:00 12/05/21 04:00 Temperature 36.4 C L Pulse Rate 77 76 78 Respiratory Rate 18 Blood Pressure 132/77 Pulse Oximetry 98 12/05/21 06:00 12/05/21 07:53 12/05/21 0
--- NOTE | 2021-12-05 16:13 | PM.CNCAR ---
Assessment and Plan Additional Plan This is 71-year-old woman who has an acute left thalamic ischemic stroke. She does not have any specific cardiac history. There is no specific reason to think that this is a cardioembolic stroke as she is in sinus rhythm has no history of valvular heart disease and essentially unremarkable looking echocardiogram. I would agree with the decision to intensify anti-platelet therapy. At this time I do not think there are any additional cardiac recommendations to make. Please call me if you have any questions regarding her cardiac status. Clif Casiano MD [facility] History of Present Illness History of Present Illness Consult date/time: 12/05/21 16:13 Reason For Visit: right sided weakness Narrative: This is a 71-year-old woman that I am seeing at the request of the hospitalist in the setting of a stroke which occurred and brought her into the hospital yesterday. Patient has no history of heart disease and is not reporting any cardiovascular symptoms that I am aware of nor [place] reading about any cardiac concerns in the chart. She was at her home yesterday and noted the onset of sudden change in the sensation in right upper and lower extremity. She has a sense of paresthesias in reduced touch sensation. There are no motor symptoms in the arm or the leg. She came to the hospital was evaluated and admitted. The patient has been found to have evidence of a left thalamic lacunar stroke corresponding with her chief complaint. She has been taking low-dose aspirin at home. According to the patient clopidogrel has been added to her medical regimen as of today. She is running any cardiac symptoms such as chest pain palpitations PND edema or syncope. She states that as an outpatient her PCP has never expressed any concern regarding her cardiac status. Her 12 lead electrocardiogram looks fine. Telemetry since being admitted in the hospital shows sinus rhythm without any evidence of atrial fibrillation. An echocardiogram was done this morning which did not demonstrate any significant structural cardiac abnormalities making a cardioembolic event very unlikely. She does have a chronic history of ongoing cigarette smoking and a history of lung cancer which was treated with radiation therapy in [place] about 2 years ago. She has regular 6 month imaging studies with CT scans of her chest. I do not have any specific at the information as to the the type of cancer this was available to me as I dictate this note. Review of Systems Constitutional: Constitutional: Reports no additional constitutional complaints Eyes: Eyes: Reports no additional eye complaints ENT: Reports system reviewed and no additional complaints, except as documented Cardiovascular: Cardiovascular: Reports no additional cardiovascular complaints Respiratory: Respiratory: Reports no additional respiratory complaints Gastrointestinal: Gastrointestinal: Reports no additional gastrointestinal complaints Musculoskeletal: Musculoskeletal: Reports no additional musculoskeletal complaints Integumentary/Breasts: Skin/Breast: Reports system reviewed and no additional complaints, except as docu Neurologic: Reports as per HPI Endocrine: Endocrine: Reports no additional endocrine complaints Hematologic/Lymphatic: Hematologic/Lymphatic: Reports no additional hematologic/lymphatic complaints Allergic/Immunologic: Allergic/Immunologic: Reports no additional allergic/immunologic complaints [facility] Past Medical History Medical History Chronic respiratory failure with hypoxia, on home oxygen therapy COPD (chronic obstructive pulmonary disease) GERD (gastroesophageal reflux disease) Hyperlipidemia TIA (transient ischemic attack) Social History Social History Smoking packs per day: 0.5 Smoking cigarettes per day: 10.0 Years smoked: 40 Smoking pack-years:
[2021-12-05] MEDS: TEMAZEPAM (*CRX) 15 MG CAPSULE PO (20:05)
[2021-12-06] VITALS (11 sets, daily range): BP systolic 130–132; BP diastolic 75–88; PULSE 71–89; RESP 14–18; TEMP 36.1–36.5; O2SAT 92–95
[2021-12-06 05:52] LABS: Hematocrit 42.4 % (37.0-47.0); Mean Corpuscular HGB Conc 35.4 g/dl (32-36); Mean Corpuscular Hemoglobin 32.2 pg (26-34); Mean Platelet Volume 10.2 fl (7.4-10.4); Platelet Count Result 300 k/mm3 (150-375); Red Blood Count 4.66 M/mm3 (4.2-5.4); Red Cell Distribution Width 13.1 % (11.5-14.5); White Blood Count 6.7 K/mm3 (4.5-10.0)
[2021-12-06 06:01] LABS: Anion Gap 7 mmol/L (8-16); Blood Urea Nitrogen 11 mg/dL (7-17); Calcium 9.7 mg/dL (8.4-10.2); Carbon Dioxide 24 mmol/L (22-30); Chloride 104 mmol/L (98-107); Cholesterol 202 mg/dL (0-200); Estimated CRCL calculation 53 ml/min; Estimated Glomerular Filt Rate > 60; Glucose 112 mg/dL (65-110); HDL Direct 59 mg/dL; Potassium 4.1 mmol/L (3.4-5.0); Sodium 135 mmol/L (137-145); Triglycerides 160 mg/dL (<150)
[2021-12-06 06:12] LABS: LDL Cholesterol Direct 85 mg/dL
[2021-12-06] MEDS: CARBAMAZEPINE XR 100 MG TAB.SR.12H 200 MG PO ×2 (08:12→16:18)
[2021-12-06] MEDS: CLOPIDOGREL BISULFATE 75 MG TABLET PO (08:12)
[2021-12-06] MEDS: ESCITALOPRAM OXALATE 10 MG TABLET 20 MG PO (08:12)
[2021-12-06] MEDS: ASPIRIN 81 MG ENTERIC TABLET PO (08:12)
[2021-12-06] MEDS: HEPARIN SODIUM 5,000 UNITS/ML VIAL 5000 UNITS SUB-Q (08:12)
[2021-12-06] MEDS: SIMVASTATIN 20 MG TABLET PO (08:12)
[2021-12-06] MEDS: PANTOPRAZOLE 40 MG TABLET PO (08:12)
[2021-12-06] MEDS: ALBUTEROL SULFATE NEB 2.5 MG/3 ML INH 1.25 MG INHALATION (09:09)
[2021-12-06] MEDS: FLUTICASONE/SALMETEROL 115-21 MCG INHALER 1 PUFF 2 PUFF INHALATION (09:10)
[2021-12-06] MEDS: UMECLIDINIUM BROMIDE 62.5 MCG ELLIPTA 1 PUFF INHALATION (09:11)
--- NOTE | 2021-12-06 12:33 | WPDNEUROPN ---
Progress Note: A&P Additional Plan 1.acute punctate left thalamic stroke 2. Trigeminal neuralgia by history plan is to continue her carbamazepine in addition to baby aspirin daily and follow up with a physician Time Spent With Patient Time with patient: 15 - 25 minutes Subjective Date/time seen: 12/06/21 12:33 71 years old lady evaluated for complaints of numbness and the weakness of the right side with documented subcortical left thalamic lacunar stroke but negative CTA for any other territory involvement additionally patient has ongoing diagnosis of trigeminal neuralgia for which she is being followed by the physician in [facility] she is taking carbamazepine and during this hospitalization her hepatic enzymes were normal and so as the CBC, be discharged with the instruction to follow up with her physicians and take 1 baby aspirin every day, her CTA neurologically is normal except the incidental finding of irregular shaped 1.9cm mass in left upper lobe with adjacent pleural thickening Review of Systems Review of Systems: All systems reviewed & are unremarkable except as noted in HPI and below Exam Const: General: cooperative, healthy appearing, comfortable and no acute distress Nutritional Appearance: average body habitus Orientation/consciousness: oriented to person, oriented to place and oriented to time Limitations: no limitations HENMT: Head: normal to inspection and normocephalic Ears: hearing grossly normal bilaterally General nose exam: Normal external nose present Face and sinus: normal facial exam Mouth: Yes Normal oral and palatal mucosa present Neck: Neck: normal visual inspection and full ROM Resp: Effort & Inspection: normal respiratory effort and able to speak in complete sentences Auscultation: clear to auscultation bilaterally Cardio: Jugular venous distension: no JVD Rate: regular rate Rhythm: regular rhythm Neuro: General: oriented to person, oriented to place and oriented to time Cranial nerves: Yes CN's II-XII intact bilaterally Cognition (Neuro): normal cognition Speech: normal speech Gait exam (Neuro): Normal gait present Sensory Exam: normal sensation Deep tendon reflexes (DTR's): Right triceps reflex intensity grade: 1+, Left triceps reflex intensity grade: 1+, Rt Biceps (C5, C6): 1+, Left biceps reflex intensity grade: 1+, Right brachioradialis reflex intensity grade: 1+, Left brachioradialis reflex intensity grade: 1+, Right patellar reflex intensity grade: 1+, Left patellar reflex intensity grade: 1+, Right ankle reflex intensity grade: 1+ and Left ankle reflex intensity grade: 1+ Psych: Appearance: grossly normal Objective Data Vital Signs Vital Signs: Vital Signs - 24 hr 12/05/21 14:40 12/05/21 16:00 12/05/21 20:00 Temperature 36.7 C Pulse Rate 74 74 74 Respiratory Rate 16 18 Blood Pressure 152/80 H Pulse Oximetry 93 93 12/05/21 20:45 12/05/21 20:52 12/05/21 21:03 Temperature 36.6 C Pulse Rate 80 77 85 Respiratory Rate 18 18 20 Blood Pressure 134/60 Pulse Oximetry 92 12/06/21 00:00 12/06/21 04:00 12/06/21 05:40 Temperature 36.1 C L Pulse Rate 87 75 80 Respiratory Rate 18 Blood Pressure 130/75 Pulse Oximetry 94 12/06/21 08:00 12/06/21 08:16 12/06/21 09:11 Temperature Pulse Rate 85 76 Respiratory Rate 18 Blood Pressure Pulse Oximetry 93 12/06/21 09:12 12/06/21 09:18 12/06/21 12:00 Temperature Pulse Rate 78 89 Respiratory Rate 18 Blood Pressure Pulse Oximetry 92 Intake/Output Intake/Output: Intake & Output 12/03/21 12/04/21 12/05/21 12/06/21 23:59 23:59 23:59 23:59 Intake Total 0 1210 790 Output Total 0 Balance 0 1210 790 Meds/Results Medications: Active Medications Generic Name Dose Route Start Last Admin Trade Name Freq PRN Reason Stop Dose Admin Albuterol 1.25 mg 12/04/21 20:00 12/06/21 09:09 Albuterol Sulfate Neb 2.5 Mg/3 Ml Inh INHALATION 1.25 mg Q12HRT [facility] Administratio
--- NOTE | 2021-12-06 15:16 | PM.DS ---
DS: Admitting Diagnosis Discharge Date 12/06/21 Admitting Diagnosis (1) TIA (transient ischemic attack): Code(s): G45.9 - Transient cerebral ischemic attack, unspecified Status: Inactive Assessment and Plan: Workup in progress. Neuro checks and monitor patient closely. (2) Hyperlipidemia: Code(s): E78.5 - Hyperlipidemia, unspecified Status: Inactive Assessment and Plan: Stable on current medication. (3) GERD (gastroesophageal reflux disease): Code(s): K21.9 - Gastro-esophageal reflux disease without esophagitis Status: Inactive Assessment and Plan: Stable on current medication. (4) COPD (chronic obstructive pulmonary disease): Code(s): J44.9 - Chronic obstructive pulmonary disease, unspecified Status: Inactive Assessment and Plan: Restart home medication. (5) Left upper lobe pulmonary nodule: Code(s): R91.1 - Solitary pulmonary nodule Status: Acute Assessment and Plan: Incidental finding will workup as an outpatient. DS: Discharge Diagnosis Discharge Diagnosis (1) Acute CVA (cerebrovascular accident): Code(s): I63.9 - Cerebral infarction, unspecified Status: Acute (2) Right sided weakness: Code(s): R53.1 - Weakness Status: Acute (3) Left upper lobe pulmonary nodule: Code(s): R91.1 - Solitary pulmonary nodule Status: Acute (4) Dysphagia: Code(s): R13.10 - Dysphagia, unspecified Status: Acute (5) Lung cancer: Code(s): C34.90 - Malignant neoplasm of unspecified part of unspecified bronchus or lung Status: Acute (6) Trigeminal neuralgia: Code(s): G50.0 - Trigeminal neuralgia Status: Acute DS: Summary Hospital Course Hospital Course: 1.acute punctate left thalamic stroke 2. Trigeminal neuralgia by history plan is to continue her carbamazepine in addition to baby aspirin daily and follow up with a physician Time Spent with Patient Time attestation: Total time spent providing and/or coordinating discharge services: DS: Data Data Completed and Pending Labs on day of discharge: Labs from last 24 hours 12/06/21 12/06/21 05:33 05:33 WBC 6.7 RBC 4.66 Hgb 15.0 Hct 42.4 MCV 91.0 MCH 32.2 MCHC 35.4 RDW 13.1 Plt Count 300 MPV 10.2 Sodium 135 L Potassium 4.1 Chloride 104 Carbon Dioxide 24 Anion Gap 7 L BUN 11 Creatinine 0.60 L Estim Creat Clear Calc 53 Estimated GFR > 60 Glucose 112 H Calcium 9.7 Triglycerides 160 H Cholesterol 202 H LDL Cholesterol Direct 85 HDL Direct 59 Discharge Plan Discharge Attending physician on discharge: Mavis Méndez Consulting providers: Tevin Bajwa ; Keith Ross Discharging Clinician: Mavis Méndez Anticipated Discharge Date/Time: 12/06/21 15:07 Patient Disposition: Home Health Service Activity: unlimited Diet: heart healthy Discharge Instructions: Per Care Coordination, pt. will D/C home with [facility] for continued PT/OT. Please have pt.'s RN fax discharge instructions to . Patient Instructions: Antibiotic Form, Heart Healthy Diet (DC) Stand Alone Forms: General Discharge Information Follow-up/Referrals: Tevin Bajwa MD [Physician] - [place],DEREK Puentes [Primary Care Provider] - Discharge Medications: New clopidogrel 75 mg Tablet 75 mg PO QAM 90 Days Qty: 90 RF: 2 Continued albuterol sulfate 1.25 mg/3 mL Solution For Nebulization 1.25 mg continuous nebulization BID RF: 0 aspirin 81 mg Tablet 81 mg PO DAILY RF: 0 albuterol sulfate 90 mcg/actuation HFA aerosol inhaler 2 puff inhalation QID PRN (Reason: Shortness Of Breath Or Wheezing) RF: 0 carbamazepine 100 mg tablet extended release 12 hr 200 mg PO BID RF: 0 escitalopram oxalate 20 mg tablet 20 mg PO QAM RF: 0 ibandronate 150 mg tablet 150 mg PO MONTHLY RF: 0 omepr
== END 2021-12-06 17:30 | disposition home health service (06) ==
LOC: ANHED 07:03 → ANH2MED 08:59
PROVIDERS: Emergency Medicine; Nurse Practitioner Adult Health; Admitting Provider Internal Medicine; Emergency Provider Emergency Medicine; PCP Nurse Practitioner Adult Health; Visit Provider Hospitalist
DX: I63.9 Cerebral infarction, unspecified (principal); G81.91 Hemiplegia, unspecified affecting right dominant side; J96.11 Chronic respiratory failure with hypoxia; J44.9 Chronic obstructive pulmonary disease, unspecified; E78.5 Hyperlipidemia, unspecified; F17.210 Nicotine dependence, cigarettes, uncomplicated; K21.9 Gastro-esophageal reflux disease without esophagitis; R91.1 Solitary pulmonary nodule; Z86.73 Personal history of transient ischemic attack (TIA), and cerebral infarction without residual deficits; Z99.81 Dependence on supplemental oxygen; Z79.82 Long term (current) use of aspirin; Z85.118 Personal history of other malignant neoplasm of bronchus and lung
CPT/HCPCS: 36415; 70450; 70496; 70498; 70553; 71046; 80048; 80053; 80061; 81003; 82948; 84484; 85025; 85027; 85610; 85730; 93005; 93306; 94640; 96372; 97110; 97161; 97165; 99285; A9270; A9577; G0378; J1644; Q9967

== ENCOUNTER 2022-09-13 14:26 | Outpatient (CLI) | payer MEDICARE, SELFPAY ==
[2022-09-13 14:30] VITALS: PULSE 75; O2SAT 95
[2022-09-13 14:35] VITALS: PULSE 98; O2SAT 86
[2022-09-13 14:40] VITALS: PULSE 99; O2SAT 88
[2022-09-13 14:45] VITALS: PULSE 100; O2SAT 91
[2022-09-13 14:53] LABS: Alveolar/Arterial O2 Gradient 35.7 mmHg; Base Excess ABG 3.1 mEq/l (+/-2.0); Carboxyhemoglobin 6.5 % THb (0-2.0); Fractional Inspired Oxygen 21 %; HCO3 ABG 28.3 mEq/l (22.0-26.0); Methemoglobin ABG 0.1 %THb (0-1.5); Oxygen Content ABG 18.7 %vol (16.0-22.0); Oxygen Saturation ABG 91.2 % (95.0-100.0); PCO2 ABG 45.1 mmHg (35.0-45.0); PO2 FiO2 Ratio Arterial Blood 2.86 %; Reduced Hemoglobin 7.1 %THb (0-5.0); Total Hemoglobin 15.4 g/dL (12.0-18.0); pH ABG 7.416 (7.350-7.450)
[2022-09-13 14:55] VITALS: PULSE 78; O2SAT 94
[2022-09-13 15:05] LABS: Device ROOM AIR; Oxyhemoglobin 86.3 % THb (90.0-100.0); Site Drawn RIGHT BRACHIAL
--- NOTE | 2022-09-13 15:53 | HOMEO2EVAL ---
Evaluation was performed at [facility] Home Oxygen Evaluation RC: Home Oxygen (O2) Evaluation Start: 09/13/22 15:48 Freq: Status: Active Protocol: RPE Activity Type Activity Date Activity User E-sign Co-sign Detail Recorded Client Recorded Date Recorded By Document 09/13/22 14:30 PK [email or web address] 09/13/22 15:53 PKH Document 09/13/22 14:35 PKH [email or web address] 09/13/22 15:53 PKH Document 09/13/22 14:40 PK [email or web address]_012 09/13/22 15:53 PK Document 09/13/22 14:45 PK [email or web address] 09/13/22 15:53 PK Document 09/13/22 14:55 PK [email or web address] 09/13/22 15:53 PK 09/13/22 09/13/22 09/13/22 14:30 14:35 14:40 Home O2 Evaluation [Oxygen] -Test Phase Resting Exercise Exercise -Oxygen Delivery Room Air Room Air Nasal Cannula -Oxygen Flow Rate (L/min) 1 [Pulse Oximetry] -Pulse Oximetry (90-100 %) 95 86 L 88 L [Pulse Rate] -Pulse Rate (60-100 beats/min) 75 98 99 [Exercise] -Ambulation Distance (feet) -Ambulation Distance (meters) 09/13/22 09/13/22 14:45 14:55 Home O2 Evaluation [Oxygen] -Test Phase Exercise Resting -Oxygen Delivery Nasal Cannula Room Air -Oxygen Flow Rate (L/min) 2 [Pulse Oximetry] -Pulse Oximetry (90-100 %) 91 94 [Pulse Rate] -Pulse Rate (60-100 beats/min) 100 78 [Exercise] -Ambulation Distance (feet) 500 -Ambulation Distance (meters) 152.39
--- NOTE | 2022-09-13 16:12 | WPDPFTINT ---
PFT Procedure Performed PFT Procedure Performed Spirometry with Pre/Post Bronchodilator Plethysmography (Lung Vol) Diffusing Cap (DLCO) Flow Vol Loop PFT Interpretation This is a pulmonary function test with pre and post-bronchodilator spirometry, plethysmography and diffusing capacity. The test was performed and results interpreted in accordance with the 2019 and 2005 ATS/ERS Task Force guidelines respectively using the Global Lung Function Initiative-2012 reference equations. Patient demonstrated good effort and cooperation. Reproducibility criteria were met. The quality of the pre bronchodilator spirometry maneuver was Grade A and post bronchodilator spirometry maneuver was Grade A. Findings: Spirometry: There is decreased maximal expiratory airflow at all lung volumes with concave expiratory flow tracing. The contour the inspiratory flow tracing is normal. The pre bronchodilator FVC is 2.02 L, 84% predicted. The pre bronchodilator FEV1 is 0.82 L, 43% predicted. The pre bronchodilator FEV1: FVC ratio was 40%. The post bronchodilator FVC is 2.09 L, representing a 3% increase. The post bronchodilator FEV1 is 0.76 L, representing a 7% decrease. The post bronchodilator FEV1: FVC ratio is 37%. Plethysmography: Total lung capacity is 6.65 L, 150% predicted. Functional residual capacity is 5.54 L, 221% predicted. The residual volume is 4.63 L, 231% predicted. Diffusing capacity: The diffusing capacity unadjusted for hemoglobin and carboxyhemoglobin is 7.7, 41% predicted. The diffusing capacity adjusted for alveolar volume is 3.00, 67% predicted. Impression: There is a severe obstructive abnormality without significant improvement after inhaling a single dose of albuterol. The increase in residual volume is consistent with air trapping from an obstructive abnormality. Hyperinflation is present as demonstrated by the increase in functional residual capacity and total lung capacity and is consistent with an obstructive abnormality. The diffusing capacity unadjusted for hemoglobin and carboxyhemoglobin is moderately decreased and remains mildly decreased when adjusted for alveolar volume. There are no prior studies for comparison
== END 2022-09-13 14:27 | disposition home or self-care (01) ==
PROVIDERS: PCP Nurse Practitioner Adult Health; Visit Provider Nurse Practitioner
DX: J44.9 Chronic obstructive pulmonary disease, unspecified (principal); R94.2 Abnormal results of pulmonary function studies
CPT/HCPCS: 36600; 82375; 82805; 83050; 94060; 94726; 94729

== ENCOUNTER 2022-11-06 09:37 | Outpatient (CLI) | payer MEDICARE, SELFPAY ==
--- NOTE | 2022-11-06 | ECHO_ITS ---
Patient Info Name: Janette Interiano Age: 72 years : 1950 Gender: Female Ht: 60 in Wt: 96 lbs BSA: 1.35 m2 HR: 64 bpm BP: 150 / 80 mmHg Heart Rhythm: Sinus Rhythm Technical Quality: Fair Exam Date: 11/06/2022 10:09 AM Exam Location: [facility] Patient Status: Outpatient Admit Date: 11/06/2022 Staff Ordering Physician: Leda, Karie LIM Baggageman: Roseann Rosales RDCS Attending Provider: Leda, Karie LIM Exam Type: CA echo doppler color flow Study Info Indications R06.09 - Other forms of dyspnea Complete two-dimensional, color flow and Doppler transthoracic echocardiogram is performed. Strain analysis performed. Summary 1. Complete two-dimensional, color flow and Doppler transthoracic echocardiogram is performed. 2. Left ventricular chamber dimension is normal. 3. Left ventricular systolic function is normal, estimated at 60-65%. 4. There is no increased left ventricular wall thickness. 5. The left ventricular diastolic function is grade I diastolic dysfunction. 6. Global longitudinal strain is abnormal at -13 %. 7. Strain analysis performed. 8. There is mild tricuspid valve regurgitation. 9. No pulmonary hypertension, estimated pulmonary arterial systolic pressure is 21 mmHg. Left Ventricle Left ventricular chamber dimension is normal. Left ventricular systolic function is normal, estimated at 60-65%. There is no increased left ventricular wall thickness. The left ventricular diastolic function is grade I diastolic dysfunction. Global longitudinal strain is abnormal at -13 %. Right Ventricle Right ventricular chamber dimension is normal. Right ventricular systolic function is normal. Left Atria Left atrial chamber dimension is normal. Right Atria Right atrial chamber dimension is normal. Atrial Septum Intact interatrial septum visualized by color flow imaging. Aortic Valve The aortic valve is trileaflet. There is mild aortic valve sclerosis. There is no aortic valve stenosis. There is trace aortic valve regurgitation. Pulmonic Valve The pulmonic valve is normal. There is no pulmonic valve stenosis. There is trace pulmonic regurgitation. Mitral Valve The mitral valve has normal leaflets. There is no mitral valve stenosis. There is trace mitral valve regurgitation. Tricuspid Valve The tricuspid valve leaflets are normal. There is no significant tricuspid valve stenosis. There is mild tricuspid valve regurgitation. No pulmonary hypertension, estimated pulmonary arterial systolic pressure is 21 mmHg. Pericardium/Pleural The pericardium appears normal. There is no pericardial effusion. Inferior Vena Cava Dilated inferior vena cava with >50% collapse upon inspiration consistent with elevated right atrial pressure, 10 mmHg. Aorta The aortic root size at the sinus of Valsalva is normal. The prox ascending aorta size is normal. Left Ventricular Outflow Tract Name Value Normal LVOT 2D LVOT Diameter 1.9 cm LVOT Doppler LVOT Peak Gradient 4 mmHg LVOT Mean Gradient 2 mmHg
== END 2022-11-06 09:38 | disposition home or self-care (01) ==
LOC: ANHCARD 09:39
PROVIDERS: PCP Nurse Practitioner Family; Visit Provider Nurse Practitioner
DX: R06.09 Other forms of dyspnea (principal); I36.1 Nonrheumatic tricuspid (valve) insufficiency
CPT/HCPCS: 93306

== ENCOUNTER → 2022-11-22 13:13 | Outpatient (CLI) | payer MEDICARE, SELFPAY ==
--- NOTE | ~2022-11-22 | DEXA_ITS ---
Bone Density Report Name: SAMMI BAZZI Age: 72 Sex: Female Ethnicity: White Date of : 1950 Indication: osteopenia; monitoring treatment; height loss; prior fracture; asthma or emphysema; postmenopausal Referring Provider: Kenneth, Sruthi Berry Study: Bone densitometry was performed. Exam Date: November 22, 2022 Accession number: [id number] Bone Density: Region BMD T-score Z-score Classification AP Spine (L1-L4) 0.767 -2.5 -0.3 Osteoporosis Femoral Neck (Left) 0.592 -2.3 -0.4 Osteopenia Total Hip (Left) 0.704 -1.9 -0.4 Osteopenia Femoral Neck (Right) 0.581 -2.4 -0.5 Osteopenia Total Hip (Right) 0.665 -2.3 -0.7 Osteopenia Total Hip Mean 0.685 -2.1 -0.6 Osteopenia World Health Organization criteria for BMD impression classify patients as: Normal (T-score at or above -1.0), Osteopenia (T-score between -1.0 and -2.5), or Osteoporosis (T-score at or below -2.5). 10-year Fracture Risk: FRAX not reported because: Some T-score for Spine Total or Hip Total or Femoral Neck at or below -2.5 Treated for osteoporosis Previous Exams: Region Exam Age BMD T-score BMD Change BMD Change Date g/cm2 vs Baseline vs Previous AP Spine(L1-L4) 11/22/2022 72 0.767 -2.5 -0.365 -0.063* 05/18/2015 65 0.830 -2.0 -0.302 -0.302 05/20/2003 53 1.132 0.8 Total Hip(Left) 11/22/2022 72 0.704 -1.9 -0.354 -0.102* 05/18/2015 65 0.807 -1.1 -0.252 -0.252 05/20/2003 53 1.059 1.0 Total Hip(Right) 11/22/2022 72 0.665 -2.3 N/A -13.0%* 05/18/2015 65 0.764 -1.5 N/A N/A 05/20/2003 53 N/A N/A *Denotes significance at 95% confidence level, LSC for AP Spine = 0.022 g/cm2, LSC for Total Hip = 0.027 g/cm2 Clinical Information Provided by Patient: Has had a low trauma fracture Smokes Is being treated for osteoporosis Has used the following medications: Brenda (i.e. ibandronate) Has the following medical conditions: Asthma or Emphysema Patient maximum height was 60.5 Menopause Age: 53 No regular weight bearing exercise Does not regularly consume dairy products Drinks caffeinated beverages Onset of menses at age 11 Number of children 1 Impression: The patient has established osteoporosis, based on the Total Spine T-score and the existence of a prior fracture. The patient has risk factors, including: smoking, previous fracture. The BMD for the AP Spine(
== END ==
PROVIDERS: PCP Nurse Practitioner Family; Visit Provider Nurse Practitioner Family
DX: M81.0 Age-related osteoporosis without current pathological fracture (principal); M85.89 Other specified disorders of bone density and structure, multiple sites
CPT/HCPCS: 77080

== ENCOUNTER 2023-01-15 11:35 | Day surgery (SDC) | payer MEDICARE, SELFPAY ==
[2022-12-28 13:19] VITALS: BMI 18.5
[2023-01-01 14:08] VITALS: BMI 18.5
--- NOTE | 2023-01-12 15:26 | PM.HPGS ---
History of Present Illness History of Present Illness Consent: Risks, benefits, and alternatives have been discussed and questions answered. Patient agrees to proceed with procedure. Chief complaint: K59.00 and R19.8 Narrative: Janette Interiano is a 72 year old female has been having at almost constant sensation of pressure in her rectum.? Since last June, she always feels a sensation that she needs to have a bowel movement.? When she does go to the bathroom usually her stools are soft and somewhat narrow.? After a bowel movement she will feel better for an hour so but then that sensation or pressure comes back.? She does not have abdominal pain.? She has not seen blood in her stools. Review of Systems Review of Systems: All systems reviewed & are unremarkable except as noted in HPI and below PMFSH Past Medical History Medical History Chronic respiratory failure with hypoxia, on home oxygen therapy COPD (chronic obstructive pulmonary disease) GERD (gastroesophageal reflux disease) Hyperlipidemia Hypertension TIA (transient ischemic attack) Social History Social History Smoking packs per day: 0.5 Smoking cigarettes per day: 10.0 Years smoked: 40 Smoking pack-years: 20.00 Smoking status: Current every day smoker Tobacco type: cigarettes Alcohol intake: never Alcohol use details: few beers per month Substance use: never Substance use type: does not use Living arrangements: alone Gender identity (if verbalized by the patient): Female Sexual Orientation (if Verbalized by the Patient): Straight or Heterosexual Spiritual care concerns: No Meds Home Medications and Allergies Home Medications Medication Instructions Recorded Confirmed Type albuterol sulfate 90 mcg/actuation 2 puff inhalation QID PRN 11/08/20 01/01/23 History aerosol inhaler Shortness Of Breath Or Wheezing aspirin 81 mg tablet 81 mg PO DAILY 11/08/20 01/01/23 History budesonide-formoterol HFA 160 2 puff BID 11/08/20 01/01/23 History mcg-4.5 mcg/actuation aerosol inhaler (Symbicort) carbamazepine 100 mg 200 mg PO BID 11/08/20 01/01/23 History tablet,extended release,12 hr escitalopram oxalate 20 mg tablet 20 mg PO QAM 11/08/20 01/01/23 History (Lexapro) ibandronate 150 mg tablet 150 mg PO MONTHLY 11/08/20 01/01/23 History omeprazole 40 mg capsule,delayed 40 mg PO DAILY 11/08/20 01/01/23 History release temazepam 15 mg capsule (Restoril) 15 mg PO HS 11/08/20 01/01/23 History tiotropium bromide 2.5 1 puff inhalation BID 11/08/20 01/01/23 History mcg/actuation mist for inhalation (Spiriva Respimat) albuterol sulfate 1.25 mg/3 mL 1.25 mg continuous nebulization BID 12/04/21 01/01/23 History solution for nebulization clopidogrel 75 mg tablet 75 mg PO QAM 90 days #90 tabs 12/06/21 01/01/23 Rx simvastatin 20 mg tablet 20 mg PO DAILY #0 tabs 12/06/21 01/01/23 Rx losartan 50 mg tablet 50 mg PO DAILY 12/12/22 01/01/23 History Allergies Allergy/AdvReac Type Severity Reaction Status Date / Time No Known Allergies Allergy Verified 01/15/23 12:09 Exam Const: General: alert Orientation/consciousness: patient oriented x3 Resp: Auscultation: clear to auscultation bilaterally Cardio: Rhythm: regular rhythm GI: GI Palp: Yes Soft to palpation and No Tenderness to palpation present (GI) Neuro: General: patient oriented x3 Assessment and Plan Assessment and plan (1) Colon cancer screening: Code(s): Z12.11 - Encounter for screening for malignant neoplasm of colon Status: Acute Assessment and Plan: Colonoscopy with possible biopsy or polypectomy or cautery or injection of substances.
--- NOTE | 2023-01-15 08:01 | WPDANESEPPF ---
Anes - Initial Pre Proc Eval Procedure: Operation Date: 01/15/23 13:30 Proposed Procedures p Diagnostic Colonoscopy - Pro Hilario MD Date/Time: 01/15/23 08:01 Surgeon: Pro Hilario MD Pre Op Diagnosis: K59.00 and R19.8 Patient Data Age: 72 Gender: F Height: 1.52 m Weight: 43 kg Allergies Allergy/AdvReac Type Severity Reaction Status Date / Time No Known Allergies Allergy Verified 01/15/23 12:09 Home Medications Medication Instructions Recorded Confirmed Type albuterol sulfate 90 mcg/actuation 2 puff inhalation QID PRN 11/08/20 01/15/23 History aerosol inhaler Shortness Of Breath Or Wheezing aspirin 81 mg tablet 81 mg PO DAILY 11/08/20 01/15/23 History budesonide-formoterol HFA 160 2 puff BID 11/08/20 01/15/23 History mcg-4.5 mcg/actuation aerosol inhaler (Symbicort) carbamazepine 100 mg 200 mg PO BID 11/08/20 01/15/23 History tablet,extended release,12 hr escitalopram oxalate 20 mg tablet 20 mg PO QAM 11/08/20 01/15/23 History (Lexapro) ibandronate 150 mg tablet 150 mg PO MONTHLY 11/08/20 01/15/23 History omeprazole 40 mg capsule,delayed 40 mg PO DAILY 11/08/20 01/15/23 History release temazepam 15 mg capsule (Restoril) 15 mg PO HS 11/08/20 01/15/23 History tiotropium bromide 2.5 1 puff inhalation BID 11/08/20 01/15/23 History mcg/actuation mist for inhalation (Spiriva Respimat) albuterol sulfate 1.25 mg/3 mL 1.25 mg continuous nebulization BID 12/04/21 01/15/23 History solution for nebulization clopidogrel 75 mg tablet 75 mg PO QAM 90 days #90 tabs 12/06/21 01/15/23 Rx simvastatin 20 mg tablet 20 mg PO DAILY #0 tabs 12/06/21 01/15/23 Rx losartan 50 mg tablet 50 mg PO DAILY 12/12/22 01/15/23 History Patient hx anesthesia problems: none Family hx anesthesia problems: none Results Review: All pre-operative results and documents have been reviewed as part of the pre-operative evaluation. [facility] Past Medical History Medical History Chronic respiratory failure with hypoxia, on home oxygen therapy COPD (chronic obstructive pulmonary disease) GERD (gastroesophageal reflux disease) Hyperlipidemia Hypertension TIA (transient ischemic attack) Social History Social History Smoking packs per day: 0.5 Smoking cigarettes per day: 10.0 Years smoked: 40 Smoking pack-years: 20.00 Smoking status: Current every day smoker Tobacco type: cigarettes Alcohol intake: never Alcohol use details: few beers per month Substance use: never Substance use type: does not use Living arrangements: alone Gender identity (if verbalized by the patient): Female Sexual Orientation (if Verbalized by the Patient): Straight or Heterosexual Spiritual care concerns: No Anes - Eval Final PreProcedure Day of Procedure 01/15/23 08:01 Patient weight: normal Heart: regular rate and rhythm Lungs: clear to auscultation and normal air movement Airway: Mallampati scale class II Neurological: alert and oriented Last oral intake: >/= 8 hours ASA classification: IV Emergent: no Anesthetic plan: proceed Anesthesia type and monitoring: general GIVS and standard monitoring Results Review: All pre-operative results and documents have been reviewed as part of the pre-operative evaluation. Informed Consent: The patient's anesthetic plan and its attendant risks and benefits were discussed with the patient/family/POA. Questions were solicited and answers provided to the satisfaction of the patient/family/POA.
[2023-01-15 12:05] VITALS: BP 142/83; PULSE 86; RESP 20; TEMP 36.6; O2SAT 97
[2023-01-15] MEDS: LACTATED RINGERS 1,000 ML 150 ML IV CONT (12:25)
[2023-01-15 13:09] VITALS: BP 124/92; PULSE 84; RESP 18; O2SAT 98
[2023-01-15 13:19] VITALS: BP 122/57; PULSE 86; RESP 20; O2SAT 100
--- NOTE | 2023-01-15 13:25 | SUR.PHASEII ---
1314; PT C/O LOW ABDOMEN CRAMPING. ENCOURAGED PT TO LAY ON EITHER SIDE AND DRAW KNEES UP. 1325; PT NOW SITTING UPRIGHT. DRINKING WHITE SODA. STATES CRAMPING MUCH BETTER NOW.
--- NOTE | 2023-01-15 13:26 | SUR.PHASEII ---
SPOKE WITH DR CLEANING. PT MAY RESTART PLAVIX TODAY.
[2023-01-15 13:29] VITALS: BP 138/72; PULSE 73; RESP 20; O2SAT 100
== END 2023-01-15 13:54 | disposition home or self-care (01) ==
PROVIDERS: PCP Nurse Practitioner Family; Visit Provider Internal Medicine Gastroenterology
PROC: 0DJD8ZZ Inspection of Lower Intestinal Tract, Via Natural or Artificial Opening Endoscopic (ICD-10-PCS; CPT 45378; principal; 2023-01-15 13:30)
DX: Z12.11 Encounter for screening for malignant neoplasm of colon (principal)
CPT/HCPCS: 45378

== ENCOUNTER 2023-06-14 07:49 | Emergency (ER) | payer MEDICARE, SELFPAY ==
[2023-06-14] VITALS (8 sets, daily range): BP systolic 129–147; BP diastolic 66–84; PULSE 71–86; RESP 12–21; TEMP 36.9; O2SAT 97–100
--- NOTE | ~2023-06-14 | XR_ITS ---
EXAMINATION: XR chest 2V DATE: 06/14/2023 09:06 INDICATION: Left chest pain. TECHNIQUE: Frontal and lateral views of the chest were obtained. COMPARISON: Chest 2 views 12/04/21, CT abdomen and pelvis 09/16/2020, neck CTA 12/04/2021 FINDINGS: The lungs are hyperexpanded with lucencies, consistent with emphysema. There is chronic sca rring in left upper lobe. No pleural effusion or pneumothorax. The heart size is normal. IMPRESSION: 1. Emphysema. 2. Chronic scarring in left lung upper lobe. Reviewed, dictated and finalized at location A.
--- NOTE | ~2023-06-14 | CT_ITS ---
EXAMINATION: CTA chest PE abdomen pel DATE: 06/14/2023 09:56 INDICATION: Chest pain. TECHNIQUE: Computed tomography angiography (CTA) of the chest was performed with 100 mL Omnipaque-350 intravenous contrast timed to evaluate the pulmonary arteries. Coronal maximum intensity projection 3D-reconstructions were created by the technologist. Computed tomography (CT) of the abdomen and pelv is was performed with intravenous contrast. Automated exposure control and iterative reconstruction t echnique were employed. The dose-length product was 322.45 mGy-cm. COMPARISON: CT abdomen and pelvis 09/16/2020 FINDINGS: CTA chest: There is moderate emphysema. There is chronic scarring in left upper lobe. A calcified rig ht lung nodule and calcified right hilar lymph nodes are consistent with old granulomatous disease. N o pleural effusion. The heart size is normal. No pericardial effusion. There is no pulmonary embolus. There is mild thoracic spondylosis. There is a chronic compression fracture of T10. CT abdomen and pelvis: The liver demonstrates focal steatosis adjacent to the posterolateral ligament . The spleen, gallbladder, pancreas, and adrenal glands are normal. There is a 6 mm cyst in right kid minerva. There is moderate left hydronephrosis with transition point at the ureteropelvic junction. There is diverticulosis of the colon without evidence of diverticulitis. There are no dilated loops of bow el. The appendix is not visualized. There is calcified atherosclerosis of the aorta and many of the o ther arteries. There are no pathologically enlarged lymph nodes. There is no free intraperitoneal flu id. There is mild lumbar spondylosis. IMPRESSION: 1. No pulmonary embolus. 2. Moderate emphysema. 3. Moderate left hydronephrosis with transition point at the ureteropelvic junction, stable from 08/29 07/18 Reviewed, dictated and finalized at location A. IMPRESSION: 1. No pulmonary embolus. 2. Moderate emphysema. 3. Moderate left hydronephrosis with transition point at the ureteropelvic junc tion, stable from 09/16/20
--- NOTE | 2023-06-14 08:24 | ECG_ITS ---
Measurements Intervals [place] Rate: 84 P: 87 NM: 185 QRS: 71 QRSD: 85 T: 73 QT: 361 QTc: 428 Interpretive Statements SINUS RHYTHM POSSIBLE LEFT ATRIAL ENLARGEMENT [-0.1mV P WAVE IN V1/V2] COMPARED TO ECG 12/05/2021 12:53:43 NM INTERVAL IS NOW NORMAL Electronically Signed On 06-14-2023 13:17:32 CDT by Clif Casiano M.D.
[2023-06-14] MEDS: ONDANSETRON INJ 4 MG/2 ML VIAL IV PUSH (08:43)
[2023-06-14] MEDS: MORPHINE SULFATE (*CRX) 4 MG/ML INJ 2 MG IV PUSH (08:43)
[2023-06-14 08:50] LABS: Basophils Absolute Auto 0.1 K/mm3 (0.0-0.1); Basophils Percent Auto 0.6 % (0.2-1.2); Eosinophils Absolute Auto 0.2 K/mm3 (0-0.3); Eosinophils Percent Auto 2.3 % (0-4.4); Hematocrit 34.3 % (37.0-47.0); Hemoglobin 11.5 g/dL (12.0-15.0); Immature Granulocyte Absolute 0.03 K/mm3 (0.00-0.031); Immature Granulocyte Percent A 0.3 % (0-0.5); Lymphocytes Absolute Auto 1.21 K/mm3 (0.9-3.2); Lymphocytes Percent Auto 13.1 % (18.3-44.2); Mean Corpuscular HGB Conc 33.5 g/dl (32-36); Mean Corpuscular Hemoglobin 31.2 pg (26-34); Mean Platelet Volume 9.9 fl (7.4-10.4); Monocytes Absolute Auto 1.4 K/mm3 (0.1-0.6); Neutrophils Absolute Auto 6.3 K/mm3 (1.3-6.7); Neutrophils Percent Auto 68.7 % (45.5-73.1); Platelet Count Result 331 k/mm3 (150-375); Red Blood Count 3.69 M/mm3 (4.2-5.4); Red Cell Distribution Width 12.3 % (11.5-14.5); White Blood Count 9.2 K/mm3 (4.5-10.0)
[2023-06-14 08:59] LABS: Alanine Aminotransferase 19 U/L (6-35); Albumin Level 3.9 g/dL (3.5-5.1); Alkaline Phosphatase 86 U/L (38-126); Anion Gap 3 mmol/L (8-16); Aspartate Amino Transferase 24 U/L (14-36); Bilirubin,Total 0.4 mg/dL (0.2-1.3); Blood Urea Nitrogen 5 mg/dL (7-17); Calcium 8.9 mg/dL (8.4-10.2); Carbon Dioxide 31 mmol/L (22-30); Chloride 94 mmol/L (98-107); Estimated CRCL calculation 67 ml/min; Estimated Glomerular Filt Rate > 60; Glucose 114 mg/dL (65-110); Lipase 39 U/L (23-300); Potassium 3.5 mmol/L (3.4-5.0); Sodium 128 mmol/L (137-145)
--- NOTE | 2023-06-14 08:59 | PC.NURSE ---
Pt to XRAY via stretcher at this time.
[2023-06-14 09:07] LABS: Appearance Urine Clear (Clear); Bilirubin Urine Negative (Negative); Blood Urine Negative (Negative); Color Urine Yellow (Yellow); Glucose Urine UA Negative (Negative); Ketones Urine Negative (Negative); Leukocyte Esterase Ur Negative LEU/UL (Negative); Nitrate Urine Negative (Negative); Protein Urine Negative (Negative); Specific Grav Ur 1.008 (1.001-1.035); Urobilinogen Urine 0.2 mg/dL (<2.0); pH Urine 7.5 (5.0-9.0)
[2023-06-14 09:10] LABS: Troponin I < 0.012 ng/mL (0.000-0.034)
[2023-06-14 09:17] LABS: Add Urine Microscopic? NO
[2023-06-14 09:21] LABS: INR 1.1; Partial Thromboplastin Time 34.1 SECONDS (22.3-36.8); Prothrombin Time 14.4 Seconds (11.1-14.7)
[2023-06-14 09:24] LABS: D Dimer 0.57 ug/mL (<0.48)
--- NOTE | 2023-06-14 09:37 | PC.NURSE ---
pt to CT via stretcher at this time
--- NOTE | 2023-06-14 11:44 | ED.CHESTPAIN ---
HPI - Chest Pain General Chief Complaint: Chest Pain Stated Complaint: CHEST/BACK PAIN [id number] Time Seen by Provider: 06/14/23 07:59 Source: patient and RN notes reviewed Mode of arrival: ambulatory Limitations: no limitations History of Present Illness HPI narrative: This is a 73 year old female with history of chronic respiratory failure on 2 L NC, hypertension, lung cancer who presents for evaluation of left lower chest pain. She reports having constant pain for 1 week. This pain radiates around to her back and it is worse with breathing . SHe has not been taking any medication for her pain. She reports chronic cough with clear phlegm. She denies fever, chills, nausea, vomiting diarrhea or dizziness. She reports pain 06/07. She denies any trauma. Related Data Home Medications Medication Instructions Recorded Confirmed albuterol sulfate 90 mcg/actuation 2 puff inhalation QID PRN 11/08/20 01/15/23 aerosol inhaler Shortness Of Breath Or Wheezing aspirin 81 mg tablet 81 mg PO DAILY 11/08/20 01/15/23 budesonide-formoterol HFA 160 2 puff BID 11/08/20 01/15/23 mcg-4.5 mcg/actuation aerosol inhaler (Symbicort) carbamazepine 100 mg 200 mg PO BID 11/08/20 01/15/23 tablet,extended release,12 hr escitalopram oxalate 20 mg tablet 20 mg PO QAM 11/08/20 01/15/23 (Lexapro) ibandronate 150 mg tablet 150 mg PO MONTHLY 11/08/20 01/15/23 omeprazole 40 mg capsule,delayed 40 mg PO DAILY 11/08/20 01/15/23 release temazepam 15 mg capsule (Restoril) 15 mg PO HS 11/08/20 01/15/23 tiotropium bromide 2.5 1 puff inhalation BID 11/08/20 01/15/23 mcg/actuation mist for inhalation (Spiriva Respimat) albuterol sulfate 1.25 mg/3 mL 1.25 mg continuous nebulization BID 12/04/21 01/15/23 solution for nebulization losartan 50 mg tablet 50 mg PO DAILY 12/12/22 01/15/23 Allergies Allergy/AdvReac Type Severity Reaction Status Date / Time No Known Allergies Allergy Verified 06/14/23 08:01 Review of Systems Review of Systems: All systems reviewed & are unremarkable except as noted in HPI and below [facility] Past Medical History Medical History Chronic respiratory failure with hypoxia, on home oxygen therapy COPD (chronic obstructive pulmonary disease) GERD (gastroesophageal reflux disease) Hyperlipidemia Hypertension TIA (transient ischemic attack) Social History Social History Smoking packs per day: 0.5 Smoking cigarettes per day: 10.0 Years smoked: 40 Smoking pack-years: 20.00 Smoking status: Current every day smoker Tobacco type: cigarettes Alcohol intake: never Alcohol use details: few beers per month Substance use: never Substance use type: does not use Living arrangements: alone Gender identity (if verbalized by the patient): Female Sexual Orientation (if Verbalized by the Patient): Straight or Heterosexual Spiritual care concerns: No Exam Const: General: no acute distress and alert Nutritional Appearance: thin Orientation/consciousness: patient oriented x3 Limitations: no limitations HENMT: Head: normal to inspection Eyes: EOM: EOMs intact bilaterally Chest: Chest palpation & inspection: normal inspection of the chest Resp: Effort & Inspection: normal respiratory effort Auscultation: clear to auscultation bilaterally Cardio: Rate: regular rate Rhythm: regular rhythm Heart sounds: no murmurs GI: GI Palp: Yes Soft to palpation, Yes Tenderness to palpation present (GI) (mild VALENTÍN), No Guarding due to palpation present (GI) and No Rigid due to palpation Auscultation: normal bowel sounds Skin: General skin exam: normal color Rashes: no rashes Neuro: General: patient oriented x3, moves all extremities and CN's II-XI intact bilaterally Extrem: General: normal to inspection Psych: Mental Status: mental status grossly normal Affect: normal affect Attitude: cooperative
[2023-06-14 11:52] LABS: Troponin I < 0.012 ng/mL (0.000-0.034)
== END 2023-06-14 12:56 | disposition home or self-care (01) ==
PROVIDERS: Emergency Provider General Practice; PCP Nurse Practitioner Adult Health
DX: R07.81 Pleurodynia (principal); E87.1 Hypo-osmolality and hyponatremia; N13.30 Unspecified hydronephrosis; I10 Essential (primary) hypertension; E78.5 Hyperlipidemia, unspecified; J44.9 Chronic obstructive pulmonary disease, unspecified; J96.10 Chronic respiratory failure, unspecified whether with hypoxia or hypercapnia; M54.9 Dorsalgia, unspecified; F17.210 Nicotine dependence, cigarettes, uncomplicated; Z86.73 Personal history of transient ischemic attack (TIA), and cerebral infarction without residual deficits; Z99.81 Dependence on supplemental oxygen
CPT/HCPCS: 36415; 71046; 71275; 74177; 80053; 81003; 83690; 84484; 85025; 85380; 85610; 85730; 93005; 96374; 96375; 99284; J2270; J2405; Q9967

== ENCOUNTER 2023-06-22 08:02 | Outpatient (CLI) | payer MEDICARE, SELFPAY ==
--- NOTE | 2023-06-22 15:07 | WPDSIXMINUTE ---
Six Minute Walk Procedure Procedure Performed Pulmonary Stress Test (6 min walk) Six Minute Walk Six Minute Walk: This is a 6 minute walk test. The test was performed and interpreted in accordance with the 2014 ERS/ATS task force guidelines. Testing was performed on 2 L nasal cannula oxygen and the patient stopped at 4 minutes due to shortness of breath Findings: The patient's resting oxygen saturation on 2 L nasal cannula measured by pulse oximetry was 96% and heart rate was 87 bpm. Patient ambulated for 183 meters and oxygen saturation remained 90 to 96%. Heart rate at the end of the study was 92 bpm. During recovery phase at 5 minutes and 20 seconds the patient's neena saturation was 87 % and this increased to 90% at 5 minutes and 48 seconds The patient demonstrated no hypoxemia on 2 L nasal cannula with exercise for 4 minutes. The patient stopped at 4 minutes and was noted to have saturations 87% during the recovery phase at 5 minutes and 20 seconds. There are no prior studies for comparison..
== END 2023-06-22 08:03 | disposition home or self-care (01) ==
PROVIDERS: PCP Family Medicine; Visit Provider Nurse Practitioner
DX: J44.9 Chronic obstructive pulmonary disease, unspecified (principal)
CPT/HCPCS: 94618

== ENCOUNTER 2023-09-24 18:00 | Outpatient (RCR) | payer MEDICARE, SELFPAY ==
[2023-06-15 15:52] VITALS: PULSE 88
== END 2023-09-24 19:13 | disposition home or self-care (01) ==
LOC: ANHCPREHAB 18:00
PROVIDERS: PCP Nurse Practitioner Adult Health; Visit Provider Internal Medicine Pulmonary Disease
DX: J44.9 Chronic obstructive pulmonary disease, unspecified (principal)
CPT/HCPCS: 94625

== ENCOUNTER 2023-10-03 07:56 | Outpatient (CLI) | payer MEDICARE, SELFPAY ==
--- NOTE | 2023-10-08 12:42 | WPDSIXMINUTE ---
Six Minute Walk Procedure Procedure Performed Pulmonary Stress Test (6 min walk) Six Minute Walk Six Minute Walk: DATE OF SERVICE: 08/03/2023 REQUESTING: CARINA Oreilly REASON FOR TESTING: severe COPD SIX MINUTE WALK This test was conducted per ATS guidelines. the patient was using oxygen 2 liters/minute during this study. The initial saturation was 98%, and initial heart rate was 71 beats per minute. The patient walked without stopping, completing 800 ft/ 243.8 meters. The saturation at the end of testing was 94%, and the heart rate was 79 beats per minute. the patient did not desaturate during this test. The patient did not require any time to rest. The patient had fatigue, had Beatrice dyspnea scale of 1 at the beginning and 3 at the end of testing. Fatigue was moderate. IMPRESSION: This is a normal study. The patient did not require supplemental oxygen with exertion. Dottie Bruner MD
== END 2023-10-03 07:57 | disposition home or self-care (01) ==
LOC: ANHPFT 07:57
PROVIDERS: PCP Nurse Practitioner Adult Health; Visit Provider Nurse Practitioner
DX: J44.9 Chronic obstructive pulmonary disease, unspecified (principal)
CPT/HCPCS: 94618

== ENCOUNTER 2024-02-19 09:25 | Outpatient (CLI) | payer MEDICARE, SELFPAY ==
[2024-02-19 18:59] LABS: Hematocrit 40.5 % (37.0-47.0); Hemoglobin 12.8 g/dL (12.0-15.0); Mean Corpuscular HGB Conc 31.6 g/dl (32-36); Mean Corpuscular Hemoglobin 30.8 pg (26-34); Mean Corpuscular Volume 97.6 fl (80-100); Mean Platelet Volume 10.4 fl (7.4-10.4); Platelet Count Result 310 k/mm3 (150-375); Red Blood Count 4.15 M/mm3 (4.2-5.4); Red Cell Distribution Width 12.9 % (11.5-14.5); White Blood Count 5.8 K/mm3 (4.5-10.0)
[2024-02-19 19:02] LABS: Alanine Aminotransferase 24 U/L (6-35); Albumin Level 4.7 g/dL (3.5-5.1); Alkaline Phosphatase 88 U/L (38-126); Anion Gap 4 mmol/L (4-12); Aspartate Amino Transferase 76 U/L (14-36); Bilirubin,Total 0.5 mg/dL (0.2-1.3); Blood Urea Nitrogen 11 mg/dL (7-17); Calcium 9.7 mg/dL (8.4-10.2); Carbon Dioxide 35 mmol/L (22-30); Chloride 92 mmol/L (98-107); Cholesterol 169 mg/dL (0-200); Estimated Glomerular Filt Rate > 60; Glucose 90 mg/dL (65-110); HDL Direct 80 mg/dL; Potassium 4.2 mmol/L (3.4-5.0); Sodium 131 mmol/L (137-145); Triglycerides 65 mg/dL (<150)
[2024-02-19 19:13] LABS: LDL Cholesterol Direct 66 mg/dL
== END 2024-02-19 09:26 | disposition home or self-care (01) ==
PROVIDERS: PCP Nurse Practitioner Adult Health; Visit Provider Nurse Practitioner Adult Health
DX: E78.5 Hyperlipidemia, unspecified (principal); I10 Essential (primary) hypertension
CPT/HCPCS: 36415; 80053; 80061; 85027

== ENCOUNTER 2024-05-21 10:21 | Outpatient (CLI) | payer MEDICARE, SELFPAY ==
[2024-05-21 20:34] LABS: Anion Gap 6 mmol/L (4-12); Blood Urea Nitrogen 9 mg/dL (7-17); Calcium 9.4 mg/dL (8.4-10.2); Carbon Dioxide 35 mmol/L (22-30); Chloride 87 mmol/L (98-107); Estimated Glomerular Filt Rate > 60; Glucose 90 mg/dL (65-110); Potassium 4.9 mmol/L (3.4-5.0); Sodium 128 mmol/L (137-145)
== END 2024-05-21 10:22 | disposition home or self-care (01) ==
LOC: ANHBWCLAB 10:22
PROVIDERS: PCP Nurse Practitioner Adult Health; Visit Provider Nurse Practitioner Adult Health
DX: E87.1 Hypo-osmolality and hyponatremia (principal)
CPT/HCPCS: 36415; 80048

== ENCOUNTER 2024-10-02 10:41 | Outpatient (CLI) | payer MEDICARE, SELFPAY ==
[2024-10-02 19:50] LABS: Basophils Absolute Auto 0.1 K/mm3 (0.0-0.1); Basophils Percent Auto 1.1 % (0.2-1.2); Eosinophils Absolute Auto 0.2 K/mm3 (0-0.3); Eosinophils Percent Auto 3.8 % (0-4.4); Hematocrit 38.1 % (37.0-47.0); Hemoglobin 12.7 g/dL (12.0-15.0); Immature Granulocyte Absolute 0.01 K/mm3 (0.00-0.031); Immature Granulocyte Percent A 0.2 % (0-0.5); Lymphocytes Absolute Auto 1.48 K/mm3 (0.9-3.2); Lymphocytes Percent Auto 23.2 % (18.3-44.2); Mean Corpuscular HGB Conc 33.3 g/dl (32-36); Mean Corpuscular Hemoglobin 31.4 pg (26-34); Mean Corpuscular Volume 94.3 fl (80-100); Mean Platelet Volume 10.1 fl (7.4-10.4); Monocytes Absolute Auto 0.9 K/mm3 (0.1-0.6); Monocytes Percent Auto 14.7 % (2.6-8.5); Neutrophils Absolute Auto 3.6 K/mm3 (1.3-6.7); Platelet Count Result 307 k/mm3 (150-375); Red Blood Count 4.04 M/mm3 (4.2-5.4); Red Cell Distribution Width 12.9 % (11.5-14.5); White Blood Count 6.4 K/mm3 (4.5-10.0)
[2024-10-02 21:09] LABS: Alanine Aminotransferase 21 U/L (6-35); Albumin Level 4.6 g/dL (3.5-5.1); Alkaline Phosphatase 77 U/L (38-126); Anion Gap 6 mmol/L (4-12); Aspartate Amino Transferase 75 U/L (14-36); Bilirubin,Total 0.5 mg/dL (0.2-1.3); Blood Urea Nitrogen 9 mg/dL (7-17); Calcium 9.1 mg/dL (8.4-10.2); Carbon Dioxide 30 mmol/L (22-30); Chloride 90 mmol/L (98-107); Cholesterol 185 mg/dL (0-200); Estimated Glomerular Filt Rate > 60; Glucose 82 mg/dL (65-110); HDL Direct 84 mg/dL; Potassium 4.4 mmol/L (3.4-5.0); Sodium 126 mmol/L (137-145); Triglycerides 83 mg/dL (<150)
[2024-10-02 21:18] LABS: Vitamin D 25 Hydroxy 78.2 ng/mL
[2024-10-02 21:28] LABS: LDL Cholesterol Direct 60 mg/dL
== END 2024-10-02 10:42 | disposition home or self-care (01) ==
PROVIDERS: PCP Nurse Practitioner Adult Health; Visit Provider Nurse Practitioner Adult Health
DX: E55.9 Vitamin D deficiency, unspecified (principal); I10 Essential (primary) hypertension; Z51.81 Encounter for therapeutic drug level monitoring
CPT/HCPCS: 36415; 80053; 80061; 82306; 82607; 85025

== ENCOUNTER 2025-04-02 09:32 | Outpatient (CLI) | payer MEDICARE, SELFPAY ==
--- OUTSIDE RECORDS SUMMARY | 2025-04-02 10:20 | XMS_ITS | Clinical Summary ---
Author Organization [facility] Address [address] [place] [address] Care Team Providers Care Tobacco Prizer Name Role Phone Booker Aly MD Unavailable Desiree Jean Baptiste ANGLESMITH Unavailable [phone] Deloris Jones ANGLESMITH Unavailable [phone] Karie Tompkins ANGLESMITH Unavailable [phone] Phylicia Moore ANGLESMITH Unavailable [phone] Kwesi Hernandez MD Primary Care Provider [phone] Allergies No known active allergies Medications aspirin 81 mg enteric coated tablet Take 81 mg by mouth daily Active escitalopram (LEXAPRO) 20 mg tablet Take 1 tablet (20 mg total) by mouth daily Active omeprazole (PriLOSEC) 40 mg capsule Take 1 capsule (40 mg total) by mouth daily Active albuterol HFA (PROVENTIL HFA,VENTOLIN HFA,PROAIR HFA) 90 mcg/actuation inhaler Inhale 2 puffs every 6 (six) hours as needed Active simvastatin (ZOCOR) 20 mg tablet Take 1 tablet (20 mg total) by mouth nightly Active temazepam (RESTORIL) 15 mg capsule Take 1 capsule (15 mg total) by mouth nightly as needed Active ibandronate (BONIVA) 150 mg tablet ibandronate 150 mg tablet TK 1 T PO Q MONTH Active inhaler, assist devices ([facility]) [facility] FOR SYMBICORT INHALER Active cholecalciferol, vitamin D3, (VITAMIN D3 ORAL) Take by mouth daily Active clopidogreL (PLAVIX) 75 mg tablet Take 1 tablet (75 mg total) by mouth every morning 2 Active losartan (COZAAR) 50 mg tablet Take 1 tablet (50 mg total) by mouth daily 2 Active arformoteroL (BROVANA) 15 mcg/2 mL nebulizer solution 2 mL (15 mcg total) every 12 hours Active revefenacin (Yupelri) 175 mcg/3 mL solution for nebulization 3 mL daily Active budesonide (PULMICORT) 0.5 mg/2 mL nebulizer solution 2 mL (0.5 mg total) every 12 hours Active carBAMazepine XR (TEGretol XR) 100 mg 12 hr tabletIndication s:Trigeminal neuralgia TAKE 2 TABLETS BY MOUTH EVERY MORNING AND 3 TABLETS BY MOUTH EVERY EVENING 450 tablet 3 3 Active Spiriva Respimat 2.5 mcg/actuation inhaler Inhale 2 puffs daily 4 g 11 4 Active albuterol 2.5 mg /3 mL (0.083 %) nebulizer solution Take 3 mL (2.5 mg total) by nebulization every 4 (four) hours as needed for wheezing 360 mL 11 4 Active azelastine (OPTIVAR) 0.05 % ophthalmic solution 1 drop 2 (two) times a day Active Symbicort 160-4.5 mcg/actuation inhaler Inhale 2 puffs 2 (two) times a day 10.2 g 11 4 Active Active Problems Problem Noted Date Diagnosed Date Chronic respiratory failure with hypoxia, on home O2 therapy 09/04/2024 Assessment & Plan (03/17/2025 2:36 PM CDT): Continue supplemental oxygen for saturations 90% or greater, she is using 3 L She is aware of the risks of hypoxia and hypercapnia She would benefit from additional pulmonary rehab and potential noninvasive/AVAPS therapy with sleep. She is uninterested in this therapy Assessment & Plan (09/04/2024 4:10 PM PATTERN CHANGER): Continue supplemental oxygen for saturations 90% or greater She is aware of the risks of hypoxia She would benefit from additional pulmonary rehab and potential noninvasive/AVAPS therapy with sleep Non-small cell cancer of left lung 09/04/2024 Assessment & Plan (09/04/2024 4:11 PM PATTERN CHANGER): Status post empiric SBRT in 2019 Imaging is being monitored yearly at this point, there are no signs or symptoms of recurrence or metastasis Oral shirley 09/04/2024 Assessment & Plan (09/04/2024 4:12 PM PATTERN CHANGER): Order for nystatin today I have reinforced rinse and spit after use of medications Heartburn 11/03/2022 Unintentional weight loss 09/10/2022 Dysphagia 02/20/2022 Ischemic stroke 12/27/2021 Interstitial lung disease 12/27/2021 Constipation 12/15/2021 Radiotherapy follow-up examination 05/10/2021 Breast pain in female 03/10/2021 Cigarette nicotine dependence without complicati on 02/17/2021 Assessment & Plan (03/17/2025 2:36 PM CDT): She continues to smoke several cigarettes per day, never with oxygen in place - Smoking cessation counseling and techniques reviewed at length - Avoid triggers and use distraction techniques - Participate in support groups - Information given regarding [place] Tobacco Quit line: 9-987-MYME-YES for free services - 5 minutes spent discussing cessation I have encouraged NRT but she continues to decline today. Assessment & Plan (09/04/2024 4:09 PM PATTERN CHANGER): - Smoking cessation counseling and techniques reviewed at length - Avoid triggers and use distraction techniques - Participate in support groups - Information given regarding [place] Tobacco Quit line: 0-904-EOJJ-YES for free services - 5 minutes spent discussing cessation Claudication 02/08/2021 Mixed anxiety and depressive disorder 02/08/2021 Disorder of rotator cuff 02/08/2021 Gastroesophageal reflux disease 02/08/2021 Hyperlipidemia LDL goal <70 02/08/2021 Insomnia 02/08/2021 Memory impairment 02/08/2021 Osteoporosis 02/08/2021 Recurrent dislocation of shoulder region 021 Trigeminal neuralgia 02/08/2021 Vitamin D deficiency 02/08/2021 Hypoxia 12/16/2020 Hypertensive disorder 11/04/2020 Ex-smoker 05/05/2020 Personal history of radiation therapy 12/19/2019 Malignant neoplasm of lung 12/15/2019 Malignant neoplasm of upper lobe of left lung Cancer Staging:Clinical stage from 08/20/2019:Stage IA2(cT1b, cN0, cM0) - Signed by Fatimah Jasmine NP on 08/20/2019 Dyspnea on exertion 07/31/2019 Lung mass 07/23/2019 Smoker 12/05/2018 Severe chronic obstructive pulmonary disease 08/2017 Assessment & Plan (03/17/2025 2:38 PM CDT): Continue open triple therapy with Symbicort twice daily and Spiriva Respimat 2.5 once daily at the same time Albuterol 2 puffs every 4 hours as needed only, we have discussed indications for use She does not have frequent exacerbations I have strongly encouraged pulmonary rehab, she declines at this time. She is aware of signs and symptoms that would require earlier evaluation or change to her plan of care Assessment & Plan (09/04/2024 4:08 PM PATTERN CHANGER): Continue triple therapy with Symbicort twice daily and Spiriva Respimat 2.5 Albuterol as needed only, we have discussed indications for use She was aware to cut back on her nebulized albuterol and assess for symptom changes We have discussed vaccines She was aware of signs and symptoms that would require earlier evaluation or change to her plan of care Encounters Date Type Department Care Team Description 03/17/2025 10:30 AM CDT Office Visit [facility] Pulmonary at [address] [place] [address] Karie Tompkins NP Severe chronic obstructive pulmonary disease (HCC) (Primary Dx); Chronic respiratory failure with hypoxia, on home O2 therapy (HCC); Cigarette nicotine dependence without complication from Last 3 Months Immunizations Immunization Administration Dates Next Due Influenza, Quadrivalent, Spl it, Intramuscular 07/15/2020,07/23/2019,07/31/2018 Pfizer SARS-CoV-2 Monovalent Vaccination (12+ Yrs) PURPLE 04/30/2021,04/09/2021 Surgical History Surgery Date Site/Laterality Comments ANKLE GANGLION CYST EXCISION ROTATOR CUFF REPAIR Medical History Medical History Date Comments COPD (chronic obstructive pulmonary disease) (HC C) History of tobacco use Hearing loss Pulmonary nodule Anxiety Bronchitis Emphysema of lung (HCC) Hypercholesteremia Osteoporosis Peptic ulcer Cancer (HCC) TIA (transient ischemic attack) Hypertensive disorder 11/04/2020 Ischemic stroke (HCC) 12/27/2021 Non-small cell cancer of left lung (HCC) 024 Oral shirley 09/04/2024 Family History Medical History Relation Name Comments No Known Problems Father Breast cancer Mother Lung disease Mother Relation Name Status Comments Father Mother Social History Tobacco Use Types Packs/Day Years Used Date Smoking Tobacco: Every Day Cigarettes 0.1 49.4 Started: 1975 Smokeless Tobacco: Never Tobacco Cessation:Ready to Q uit: Not Asked; Counseling Given: Not Answered Alcohol Use Standard Drinks/Week Comments Not Currently 0 (1 standard drink = 0.6 oz pur e alcohol) AUDIT-C Answer Date Recorded Q1: How often do you have a drink containing alc ohol? Never 12/27/2021 Average Number of Drinks Not on file 022 Frequency of Binge Drinking Not on file 10/2021 Comments No Sex and Gender Information Value Date Recorded Sex Assigned at Not on file Legal Sex Female 12:45 AM PATTERN CHANGER Gender Identity Not on file Sexual Orientation Not on file Occupation Industry Job Start Date Job End Date retired Not on file Not on file Not on file Obstetrics History Last Filed Vital Signs Vital Sign Reading Time Taken Comments Blood Pressure 140/70 03/17/2025 10:19 AM CDT Pulse 55 03/17/2025 10:19 AM CDT Temperature 37.3 C (99.1 F) 03/17/2025 10:19 AM CDT Respiratory Rate 16 03/17/2025 10:1 9 AM CDT Oxygen Saturation 99% 03/17/2025 10: 19 AM CDT On 3 L O2 Inhaled Oxygen Concentration - - Weight 39.8 kg (87 lb 11.2 oz) 03/17/20 25 10:19 AM CDT Height 152.4 cm (5') 03/17/2025 10:19 AM CDT Body Mass Index 17.13 03/17/2025 10:19 AM CDT Plan of Treatment Health Maintenance Due Date Last Done Comments Colon Cancer Screening-Colonoscopy 1951 Depression Screening 1951 Fall Risk Assessment 1950 Hepatitis C Screening 1950 Osteoporosis Screening-Bone Density Scan 1951 Hepatitis B Screening 1969 Well Visit 65+ 2016 Breast Cancer Screening-Mammogram 08/09/2022 021 Pneumococcal vaccine 65+ (3 of 3 - PCV20 or PCV21) 11/07/2022 11/07/2017, 08/12/2014 Covid-19 Vaccine (4 - 2023-2 5 season) 2024 11/12/2021, 04/30/2021, 04/09/2021 Influenza Vaccine (Season Ended) 2025 08/04/2022, 07/22/2021, 07/13/2021, Additional history exists DTaP/Tdap/Td Vaccine (3 - Td or Tdap) 08/09/2028 08/09/2018, 11/15/2010 Zoster Vaccine Completed 03/16/2021, 12/27, 01/03/2021, Additional history exists Insurance UHC MEDICARE ADVANTAGE [facility] MEDICARE ADVANTAGE [facility] MEDICARE ADVANTAGE Care Teams Tobacco Prizer Relationship Specialty Start Date End Date Kwesi Hernandez MD [id number] [place] [address] PCP - General Family Practice 03/04/24 Booker Aly MD [address] [facility] [address] [place] [address] Radiation Oncologist Radiation Oncology 09/23/19 Desiree Jean Baptiste NP [address] [facility] [address] [place] [address] Referring Physician Cardiothoracic Surgery 09/23/19 Deloris Jones NP [address] [place] [address] [place] [address] Nurse Practitioner Nurse Practitioner 08/02/20 Karie Tompkins NP [address] [place] [address] [place] [address] Nurse Practitioner Pulmonary Disease 11/09/20 Phylicia Moore NP [address] [facility] [address] [place] [address] Nurse Practitioner Radiation Oncology 06/20/23
--- OUTSIDE RECORDS SUMMARY | 2025-04-02 10:20 | XMS_ITS | Referral Summary ---
Author Organization [facility] Address [address] [place] [address] Care Team Providers Care Drupal Architect Name Role Phone Booker Aly MD Unavailable Desiree Jean Baptiste COMMUNITY RELATIONS REPRESENTATIVE Unavailable [phone] Deloris Jones COMMUNITY RELATIONS REPRESENTATIVE Unavailable [phone] Karie Tompkins COMMUNITY RELATIONS REPRESENTATIVE Unavailable [phone] Phylicia Moore COMMUNITY RELATIONS REPRESENTATIVE Unavailable [phone] Kwesi Hernandez MD Primary Care Provider [phone] Encounters Date Type Department Care Team Description 03/17/2025 10:30 AM CDT Office Visit [facility] Pulmonary at [address] [place] [address] Karie Tompkins NP Severe chronic obstructive pulmonary disease (HCC) (Primary Dx); Chronic respiratory failure with hypoxia, on home O2 therapy (HCC); Cigarette nicotine dependence without complication from Last 3 Months Allergies No known active allergies Medications aspirin [...] PO Q MONTH Active inhaler, assist devices (PROCHAMBER MISC) ProChamber U SPACER FOR SYMBICORT INHALER Active cholecalciferol, [...] therapy Assessment & Plan (09/04/2024 4:10 PM VENEER REDRIER): Continue supplemental oxygen for saturations 90% or greater She is aware of the risks of hypoxia She would benefit from additional pulmonary rehab and potential noninvasive/AVAPS therapy with sleep Non-small cell cancer of left lung 09/04/2024 Assessment & Plan (09/04/2024 4:11 PM VENEER REDRIER): Status post empiric SBRT in 2019 Imaging is being monitored yearly at this point, there are no signs or symptoms of recurrence or metastasis Oral shirley 09/04/2024 Assessment & Plan (09/04/2024 4:12 PM VENEER REDRIER): Order for nystatin today I have reinforced [...] in support groups - Information given regarding [place] Tobacco Quit line: 9-365-LGMW-YES for free services - 5 minutes spent discussing cessation I have encouraged NRT but she continues to decline today. Assessment & Plan (09/04/2024 4:09 PM VENEER REDRIER): - Smoking cessation counseling and techniques reviewed at length - Avoid triggers and use distraction techniques - Participate in support groups - Information given regarding [place] Tobacco Quit line: 8-086-GJTJ-YES for free services - 5 minutes spent [...] cN0, cM0) - Signed by Fatimah Jasmine COMMUNITY RELATIONS REPRESENTATIVE on 08/20/2019 Dyspnea on exertion 07/31/2019 Lung [...] care Assessment & Plan (09/04/2024 4:08 PM VENEER REDRIER): Continue triple therapy with Symbicort twice daily and Spiriva Respimat 2.5 Albuterol as needed only, we have discussed indications for use She was aware to cut back on her nebulized albuterol and assess for symptom changes We have discussed vaccines She was aware of signs and symptoms that would require earlier evaluation or change to her plan of care Immunizations Immunization Administration Dates Next Due Influenza, Quadrivalent, Spl it, Intramuscular 07/15/2020,07/23/2019,07/31/2018 Pfizer SARS-CoV-2 Monovalent Vaccination (12+ Yrs) PURPLE 04/30/2021,04/09/2021 Social History Tobacco Use Types Packs/Day Years [...] on file Legal Sex Female 12:45 AM VENEER REDRIER Gender Identity Not on file Sexual Orientation Not on file Occupation Industry Job Start Date Job End Date retired Not on file Not on file Not on file Last Filed Vital Signs Vital Sign Reading [...] 03/17/2025 10:19 AM CDT Plan of Treatment Not on file Insurance [facility] MEDICARE [employer] [facility] Address: [address] [place] [id number] [facility] Address: [address] [address] [facility] Address: [address] [place] [address] Care Teams Drupal Architect Relationship Specialty Start Date End Date Kwesi Hernandez MD [address] [facility] [place]NOTE 2[facility] [address] [place] [address] PCP - General Family Practice 03/04/24 Booker Aly MD [address] [facility] [address] [place] [address] Radiation Oncologist Radiation Oncology 09/23/19 Desiree Jean Baptiste NP [address] [facility] [address] [place], [place] [id number] Referring Physician Cardiothoracic Surgery 09/23/19 Deloris Jones NP [address] [place] [address] [place] [address] Nurse Practitioner Nurse Practitioner 08/02/20 Karie Tompkins NP [address] [place] [address] [place] [address] Nurse Practitioner Pulmonary Disease 11/09/20 Phylicia Moore NP [address] [facility] [address] [place] [address] Nurse Practitioner Radiation Oncology 06/20/23
--- OUTSIDE RECORDS SUMMARY | 2025-04-02 10:20 | XMS_ITS ---
Author Organization [facility] Address [address] [place] [address] Care Team Providers Care Body Shop Supervisor Name Role Phone Booker Aly MD Unavailable Desiree Jean Baptiste PHOTO CHECKER Unavailable [phone] Deloris Jones PHOTO CHECKER Unavailable [phone] Karie Tompkins PHOTO CHECKER Unavailable [phone] Phylicia Moore PHOTO CHECKER Unavailable [phone] Kwesi Hernandez MD Primary Care Provider [phone] Active Problems Problem Noted Date Diagnosed Date [...] therapy Assessment & Plan (09/04/2024 4:10 PM FINANCIAL SERVICES REPRESENTATIVE): Continue supplemental oxygen for saturations 90% or greater She is aware of the risks of hypoxia She would benefit from additional pulmonary rehab and potential noninvasive/AVAPS therapy with sleep Non-small cell cancer of left lung 09/04/2024 Assessment & Plan (09/04/2024 4:11 PM FINANCIAL SERVICES REPRESENTATIVE): Status post empiric SBRT in 2019 Imaging is being monitored yearly at this point, there are no signs or symptoms of recurrence or metastasis Oral shirley 09/04/2024 Assessment & Plan (09/04/2024 4:12 PM FINANCIAL SERVICES REPRESENTATIVE): Order for nystatin today I have reinforced [...] in support groups - Information given regarding [place] Tobacco Quit line: 0-430-[id number]-YES for free services - 5 minutes spent discussing cessation I have encouraged NRT but she continues to decline today. Assessment & Plan (09/04/2024 4:09 PM FINANCIAL SERVICES REPRESENTATIVE): - Smoking cessation counseling and techniques reviewed at length - Avoid triggers and use distraction techniques - Participate in support groups - Information given regarding [place] Tobacco Quit line: 8-984-CEAH-YES for free services - 5 minutes spent [...] care Assessment & Plan (09/04/2024 4:08 PM FINANCIAL SERVICES REPRESENTATIVE): Continue triple therapy with Symbicort twice daily and Spiriva Respimat 2.5 Albuterol as needed only, we have discussed indications for use She was aware to cut back on her nebulized albuterol and assess for symptom changes We have discussed vaccines She was aware of signs and symptoms that would require earlier evaluation or change to her plan of care Current Treatment and Therapy Plans No current plan information found. Past Treatment and Therapy Plans No past plan information found. 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 [place] [phone] This Survivorship Care Plan is a cancer treatment summary and follow-up plan and is provided to youto keep with your health care records and to share with your primary care provider or any of your doctors and nurses. This summary is a brief record of major aspects of your cancer treatment not a detailed or comprehensive record of your care. You should review this with your cancer provider. Treatment Summary and Survivorship Care Plan for Non-Small Cell Lung Cancer General Information Patient name Janette Interiano (home) Date of 1950 Health Care Providers (Including Names, Institutions) Provider Name: Contact Information: Primary Care Physician Deloris Jones NP [phone] Surgeon No care pricing/signage team member to display Radiation Oncologist MD Fatimah Gibson NP [phone] Medical Oncologist No care pricing/signage team member to display Other Providers Treatment Summary Cancer Diagnosis Information Diagnosis Malignant neoplasm of upper lobe of left lung (CMS/HCC) Diagnosis date 08/20/2019 Staging information Cancer Staging Malignant neoplasm of upper lobe of left lung (CMS/HCC) Staging form: Lung, AJCC 8th Edition - Clinical stage from 08/20/2019: Stage IA2 (cT1b, cN0, cM0) - Signed by Fatimah Jasmine NP on 08/20/2019 Treatment Completed Surgery No Radiation 09/22/2019 Course Name [id number] Treatment Start Date 09/17/2019 Elapsed Days 5 Treatment Site PTV_DPV Dose Given To Date (cGy) 5,400 Session Dosage Given (cGy) 1,800 Plan ID SBRT NAA Fractions Treated 3 Prescribed Dose Per Fraction (cGy) 1,800 Prescribed Total Dose (cGy) 5,400 Systemic Therapy (chemotherapy, hormonal therapy, other) [No treatment plan] Lifetime Dose Tracking Lifetime Dose Tracking No doses have been documented on this patient for the following tracked chemicals: doxorubicin, epirubicin, idarubicin, daunorubicin, mitoxantrone, bleomycin, mitomycin, cyclophosphamide, carmustine,ifosfamide, etoposide, doxorubicin HCl pegylated liposomal, etoposide phosphate, valrubicin, doxorub icin isotoxic equivalent Research Studies No available studies Persistent symptoms or side effects that have continued after finishing treatment: Other: : Treatment Ongoing: No Follow-up Care Plan Your follow-up care plan is design to inform you and primary care providers regarding the recommended and required follow-up, cancer screening and routine health maintenance that is needed to maintain optimal health. Schedule of Clinical Visits Coordinating Provider When/How often MD Fatimah Gibson NP Every 3 months for first 2 years, then every 6 months for 3-5 years then yearly. Cancer Surveillance or other Recommended Tests Coordinating Provider Test How Often MD Fatimah Gibson NP Chest Imaging Every 3 months for 2 years then every 6 months years 3-5, then yearly. All providers Monitor for custodial cardiac toxicity. Dleoris Jones Monitor for custodial toxicity Cardiac - congestive heart failure (CHF), coronary artery disease (CAD) Renal insufficiency- Creatinine Musculoskeletal - Chest wall pain Neurologic - neuropathy Hematologic - CBC Yearly Possible late- and long-term effects that someone with this type of cancer and treatment may experience: Constipation Hearing loss Kidney problems Peripheral neuropathy or numbness and tingling Pneumonitis or inflammation of the lung (6 weeks-6 months after treatment) * Pulmonary fibrosis or scarring (6 weeks-6 months after treatment) * Trouble with or painful swallowing * Chest wall toxicity between 9-12 months after radiation therapy * Please call your radiation oncologist if experiencing these late effects * Fatigue Many patients experience some level of fatigue. Some patients experience severe and ongoing fatigue. An active lifestyle with healthy sleep patterns can improve your energy levels. Talk to your provider about ongoing (more than 3 months) fatigue. Please continue to see your primary care provider for all general health care recommended for a person your age, including cancer screening tests. Any symptoms should be brought to the attention of your provider: Anything that represents a brand new symptom; Anything that represents a persistent symptom; Anything you are worried about that might be related to the cancer coming back. Cancer survivors may experience issues with the areas listed below. If you have any concerns in these or other areas, please speak with your doctors or nurses to find out how you can get help with them. Anxiety and depression Emotional and mental health Fatigue Fertility Financial advice or assistance Insurance Memory or concentration loss Parenting Physical functioning School/work Sexual functioning Stopping smoking Weight changes Other A number of lifestyle/behaviors can affect your ongoing health, including the risk for the cancer coming back or developing another cancer. Discuss these recommendations with your doctor or nurse: Eat a healthy diet: focus on more fruits, vegetables and whole grains. Maintain a healthy weight; avoid being overweight. Aim for a normal body mass index (BMI) of 18.5-24.9. Help learning to eat healthier, call the ad operations specialist at: [facility] . Have an active lifestyle, strive for 30 minutes of moderate exercise 5 times a week and strength orresistance training at least twice a week. Use broad-spectrum (UVA+UVB) sunscreen with SPF 30 or greater, is water resistant, limit time spentin the sun (10 am-4pm), wear hat, wear UV protective clothing, wear sunglasses. Never use a tanningbed. Skin that was irradiated may be more sensitive over your lifetime. Do not smoke or chew tobacco; participate in a smoking cessation program. Limit alcohol intake, 1 drink per day for a woman and 2 drinks per day for a man. Resources you may be interested in: [facility] [place] [facility] [facility] http://www.[facility]/ [facility] Information [facility] 1st floor of [facility] [phone]. Computer access, educational material, counseling services (FREE) Cancer Resources: www.cancer.net [place] Disabilities Act: The U.S. Department of Justice provides information about the Americans with Disabilities Act (ADA). Toll free number http://www.ada.gov/ Occupational Therapy at [facility]. Improve memory and thinking following chemotherapy. Improve your performance at home, work and in the community. or Toll free www.ot.[facility]/patients A service of CancerCare, a non-profit organization providing free, professional support - includingcounseling, support group, financial assistance, educational workshops and publications -to anyone coping with lung cancer. http://www.lungcancer.org/ We are a partnership of lung cancer survivors, advocates, researchers, healthcare professionals andlea regional medical centery leaders. And we are united in the belief that every person with lung cancer deserves a cure. http://www.freetobreathe.org/ Lung Cancer Connection is committed to organizing and funding community outreach programs aimed at those affected by lung cancer in the [place] area. http://www.lungcancerconnectioninc.org Cancer and Careers empowers and educates people with cancer to thrive in their workplace by providing expert advice, interactive tools and educational events. http://www.cancerandcareers.org/en/uhmtlpm-xuj-pvoq Spring[employer] Beyond Cancer: https://survivorship.cancer.gov/ an online tool for cancer survivors andcaregivers created by the [place] [employer] and the National Cancer [place]. It provides: Information on dealing with side effects from cancer and treatment Caregivers with support and resources Practical advice about talking to friends and family about cancer Questions to ask their health care team
[2025-04-02 20:31] LABS: Anion Gap 7 mmol/L (4-12); Blood Urea Nitrogen 12 mg/dL (7-17); Calcium 9.5 mg/dL (8.4-10.2); Carbon Dioxide 32 mmol/L (22-30); Chloride 95 mmol/L (98-107); Estimated Glomerular Filt Rate > 60; Glucose 83 mg/dL (65-110); Potassium 4.8 mmol/L (3.4-5.0); Sodium 134 mmol/L (137-145)
== END 2025-04-02 09:33 | disposition home or self-care (01) ==
LOC: ANHBWCLAB 09:33
PROVIDERS: PCP Nurse Practitioner Adult Health; Visit Provider Nurse Practitioner Adult Health
DX: I10 Essential (primary) hypertension (principal)
CPT/HCPCS: 36415; 80048